=== PATIENT | female | born 1945 | race Caucasian/White ===

== ENCOUNTER → 2017-02-09 | Outpatient (CLI) | payer OTHER ==
[~2017-02-09] MED LIST: ALBUAER3 IN; ASPI-231 PO; CARV3.1213 OR; METF-312 PO; SIMV-13 PO; SPIR25TA89 PO
== END | disposition home or self-care (01) ==
LOC: XYW 07:48
PROVIDERS: ATTEND Internal Medicine
DX: I08.1 Rheumatic disorders of both mitral and tricuspid valves (principal); I49.9 Cardiac arrhythmia, unspecified
CPT/HCPCS: 93306

== ENCOUNTER → 2017-02-10 | Outpatient (CLI) | payer OTHER ==
[2017-02-10 09:30] LABS: Urine Bilirubin Negative (Negative); Urine Blood Negative /uL (Negative); Urine Color Yellow (Yellow); Urine Glucose 1+ mg/dL (Normal); Urine Ketone Negative (Negative); Urine Mucus FEW (None Seen); Urine Nitrite POSITIVE (Negative); Urine RBC 1 /hpf (0 - 4); Urine Squamous Epithelial Cell MOD /hpf (<5); Urine Urobilinogen Normal (Negative); Urine pH 5.5 (5.0-8.0)
[2017-02-10 09:52] LABS: Albumin 3.7 g/dL (3.4-5.0); BUN/Creatinine Ratio 18.7; Bilirubin, Total 0.3 mg/dL (0.2-1.0); Calcium 8.8 mg/dL (8.5-10.1); Potassium 4.1 mmol/L (3.5-5.1); Total Protein 7.2 g/dL (6.4-8.2)
== END | disposition home or self-care (01) ==
LOC: LAB 07:50
PROVIDERS: ATTEND Internal Medicine
DX: I10 Essential (primary) hypertension (principal); I42.9 Cardiomyopathy, unspecified
CPT/HCPCS: 36415; 80053; 80061; 81001; 82043; 82306; 83036; 84443; 86803

== ENCOUNTER → 2018-06-13 | Outpatient (CLI) | payer OTHER ==
[~2018-06-13] MED LIST changes: +CAR3125T OR; -CARV3.1213 OR; -METF-312 PO; +METF-370 PO
[2018-06-13 10:58] LABS: Basophils # (auto) 0 uL; Basophils % (auto) 0.6 % (0.0-2.0); Eosinophils # (auto) 0.4 uL; Eosinophils % (auto) 5.3 % (0.0-7.0); Hematocrit 41.8 % (36.0-46.0); Hemoglobin 14.1 g/dL (12.2-16.2); Lymphocytes # (auto) 2.5 uL; Lymphocytes % (auto) 35.2 % (10.0-50.0); Mean Corpuscular Hgb Conc. 33.8 g/dL (32.0-36.0); Mean Corpuscular Volume 88.9 fL (80.0-100.0); Monocytes # (auto) 0.5 uL; Monocytes % (auto) 7.6 % (0.0-12.0); Neutrophils # (auto) 3.7 uL; Neutrophils % (auto) 51.3 % (37.0-80.0); Nucleated Red Blood Cells % 0.1 %; Platelet Count (auto) 216 10^3/uL (140-450); Red Cell Distribution Width 13.2 % (11.8-14.3); White Blood Cell 7.2 10^3/uL (4.4-10.8)
[2018-06-13 11:02] LABS: Albumin 3.8 g/dL (3.4-5.0); BUN/Creatinine Ratio 12.6; Bilirubin, Total 0.5 mg/dL (0.2-1.0); Calcium 8.9 mg/dL (8.5-10.1); Potassium 3.9 mmol/L (3.5-5.1); Total Protein 7.3 g/dL (6.4-8.2)
== END | disposition home or self-care (01) ==
LOC: LAB 09:25
PROVIDERS: ATTEND Physician Assistant
DX: I11.0 Hypertensive heart disease with heart failure (principal); I50.9 Heart failure, unspecified; E11.9 Type 2 diabetes mellitus without complications; E55.9 Vitamin D deficiency, unspecified; E42 Marasmic kwashiorkor; J44.9 Chronic obstructive pulmonary disease, unspecified
CPT/HCPCS: 36415; 80053; 80061; 82306; 83036; 85025

== ENCOUNTER 2018-06-27 12:17 | Emergency (ER) | payer OTHER ==
[~2018-06-27] VITALS: Ht 160 cm; Wt 83.9 kg
[2018-06-27 12:27] VITALS: BP 144/78
== END 2018-06-27 13:41 | disposition home or self-care (01) ==
LOC: ER 12:17
DX: S06.5X9A Traumatic subdural hemorrhage with loss of consciousness of unspecified duration, initial encounter (principal); I11.0 Hypertensive heart disease with heart failure; I50.9 Heart failure, unspecified; I25.10 Atherosclerotic heart disease of native coronary artery without angina pectoris; J44.9 Chronic obstructive pulmonary disease, unspecified; I25.2 Old myocardial infarction; Z90.49 Acquired absence of other specified parts of digestive tract; Z90.710 Acquired absence of both cervix and uterus; Z88.1 Allergy status to other antibiotic agents; Z88.5 Allergy status to narcotic agent; Z79.82 Long term (current) use of aspirin; Z79.84 Long term (current) use of oral hypoglycemic drugs; Z79.899 Other long term (current) drug therapy; W18.30XA Fall on same level, unspecified, initial encounter; Y93.89 Activity, other specified; Y99.8 Other external cause status; Y92.89 Other specified places as the place of occurrence of the external cause
CPT/HCPCS: 70450

== ENCOUNTER 2019-01-05 09:13 | Day surgery (SDC) | payer OTHER, MEDICARE ==
[2019-01-02 13:06] LABS: Basophils # (auto) 0.1 uL; Basophils % (auto) 0.8 % (0.0-2.0); Eosinophils # (auto) 0.4 uL; Eosinophils % (auto) 5.2 % (0.0-7.0); Hematocrit 42.4 % (36.0-46.0); Hemoglobin 14.4 g/dL (12.2-16.2); Lymphocytes # (auto) 2.9 uL; Lymphocytes % (auto) 35.2 % (10.0-50.0); Mean Corpuscular Hemoglobin 30.2 pg (28.0-32.0); Mean Corpuscular Hgb Conc. 33.9 g/dL (32.0-36.0); Mean Corpuscular Volume 89.3 fL (80.0-100.0); Monocytes # (auto) 0.6 uL; Monocytes % (auto) 7.6 % (0.0-12.0); Neutrophils # (auto) 4.2 uL; Neutrophils % (auto) 51.2 % (37.0-80.0); Nucleated Red Blood Cells % 0.1 %; Platelet Count (auto) 236 10^3/uL (140-450); Red Blood Cells 4.75 10^6/uL (4.0-5.20); Red Cell Distribution Width 13.3 % (11.8-14.3); White Blood Cell 8.2 10^3/uL (4.4-10.8)
[2019-01-02 13:26] LABS: INR 0.87 (0.9-1.15); Prothrombin Time 9.4 sec (9.27-12.13)
[2019-01-02 13:28] LABS: Albumin 3.9 g/dL (3.4-5.0); BUN/Creatinine Ratio 12.2; Calcium 9.6 mg/dL (8.5-10.1); Potassium 4.2 mmol/L (3.5-5.1)
[2019-01-02 13:30] LABS: Bilirubin, Total 0.5 mg/dL (0.2-1.0); Total Protein 7.9 g/dL (6.4-8.2)
[~2019-01-05] VITALS: Ht 160 cm; Wt 83.9 kg
[~2019-01-05 09:13] MED LIST changes: -ALBUAER3 IN; +SPIR25TA8 PO; -SPIR25TA89 PO
[2019-01-05] MEDS ORDERED: ceFAZolin 1GM/50ML 50 ML IV ONE (09:39)
[2019-01-05] MEDS ORDERED: VANCOMYCIN HCL 1000 MG VL ONE (10:20)
[2019-01-05] MEDS ORDERED: fentaNYL CITRATE 100 MCG/2 ML VL ONE (10:20)
[2019-01-05] MEDS ORDERED: MIDAZOLAM HCL 1MG/1ML-2 ML VIAL ONE (10:21)
[2019-01-05] MEDS ORDERED: VANCOMYCIN 1GM/250ML 250 ML IV ONE (10:21)
[2019-01-05] MEDS ORDERED: LIDOCAINE 2%HCL (LOCAL ANESTH.) INJ 20ML MDV ONE ×2 (10:35→11:11)
[2019-01-05] MEDS ORDERED: ceFAZolin 1GM VL ONE (11:22)
== END 2019-01-05 13:10 | disposition home or self-care (01) ==
LOC: CATH 09:13
PROVIDERS: ATTEND Internal Medicine Cardiovascular Disease
DX: Z45.2 Encounter for adjustment and management of vascular access device (principal); I42.0 Dilated cardiomyopathy; J44.9 Chronic obstructive pulmonary disease, unspecified; I21.3 ST elevation (STEMI) myocardial infarction of unspecified site; I11.0 Hypertensive heart disease with heart failure; I50.9 Heart failure, unspecified; E78.5 Hyperlipidemia, unspecified; M19.90 Unspecified osteoarthritis, unspecified site; E11.9 Type 2 diabetes mellitus without complications; Z87.891 Personal history of nicotine dependence; Z79.899 Other long term (current) drug therapy; Z79.01 Long term (current) use of anticoagulants; Z98.890 Other specified postprocedural states; Z88.8 Allergy status to other drugs, medicaments and biological substances
CPT/HCPCS: 33263; 36415; 80053; 85025; 85610; 85730; C1882; J0690; J2250; J3010; J3370; J7030; 99152; 99153

== ENCOUNTER → 2019-02-07 | Outpatient (CLI) | payer MEDICARE ==
[2019-02-07 13:00] LABS: Basophils # (auto) 0.1 uL; Basophils % (auto) 0.8 % (0.0-2.0); Eosinophils # (auto) 0.4 uL; Eosinophils % (auto) 5.8 % (0.0-7.0); Hematocrit 43.6 % (36.0-46.0); Hemoglobin 14.5 g/dL (12.2-16.2); Lymphocytes # (auto) 2.7 uL; Lymphocytes % (auto) 37.6 % (10.0-50.0); Mean Corpuscular Hemoglobin 29.5 pg (28.0-32.0); Mean Corpuscular Hgb Conc. 33.2 g/dL (32.0-36.0); Monocytes # (auto) 0.6 uL; Neutrophils # (auto) 3.5 uL; Neutrophils % (auto) 47.8 % (37.0-80.0); Nucleated Red Blood Cells % 0.1 %; Platelet Count (auto) 220 10^3/uL (140-450); Red Cell Distribution Width 13.2 % (11.8-14.3); White Blood Cell 7.3 10^3/uL (4.4-10.8)
[2019-02-07 13:09] LABS: Urine Bacteria MANY /hpf (None Seen); Urine Blood Negative /uL (Negative); Urine Hyaline Cast FEW /lpf (0 - 2); Urine Mucus FEW (None Seen); Urine Specific Gravity 1.026 (1.001-1.035); Urine WBC 31 /hpf (0 - 5)
[2019-02-07 13:20] LABS: Albumin 3.9 g/dL (3.4-5.0); Calcium 8.6 mg/dL (8.5-10.1); Potassium 3.9 mmol/L (3.5-5.1)
[2019-02-07 13:25] LABS: BUN/Creatinine Ratio 16.8; Bilirubin, Total 0.5 mg/dL (0.2-1.0); Total Protein 7.6 g/dL (6.4-8.2)
== END | disposition home or self-care (01) ==
LOC: LAB 12:06
PROVIDERS: ATTEND Physician Assistant
DX: I13.0 Hypertensive heart and chronic kidney disease with heart failure and stage 1 through stage 4 chronic kidney disease, or unspecified chronic kidney disease (principal); E11.22 Type 2 diabetes mellitus with diabetic chronic kidney disease; I50.20 Unspecified systolic (congestive) heart failure; N18.9 Chronic kidney disease, unspecified; I42.9 Cardiomyopathy, unspecified; E55.9 Vitamin D deficiency, unspecified; Z83.49 Family history of other endocrine, nutritional and metabolic diseases
CPT/HCPCS: 36415; 80053; 80061; 81001; 83036; 84443; 85025

== ENCOUNTER → 2023-06-21 | Outpatient (CLI) | payer OTHER ==
[~2023-06-21] MED LIST changes: -ASPI-231 PO; +ASPI1TAB20 PO; -SIMV-13 PO; +SIMV40TA18 PO
[2023-06-21 10:01] LABS: Cholesterol 192 mg/dL (< 200); HDL Cholesterol 44 mg/dL (40-59); LDL Cholesterol 136 mg/dL (< 100); Triglycerides 78 mg/dL (< 150)
[2023-06-21 10:47] LABS: Folate (Folic Acid) 23.29 ng/mL (5.38-24)
== END | disposition home or self-care (01) ==
LOC: LAB 08:58
PROVIDERS: ATTEND Internal Medicine
DX: E11.22 Type 2 diabetes mellitus with diabetic chronic kidney disease (principal); N18.2 Chronic kidney disease, stage 2 (mild)
CPT/HCPCS: 36415; 80061; 82607; 82746; 84443

== ENCOUNTER → 2023-10-12 | Outpatient (CLI) | payer OTHER ==
[~2023-10-12] MED LIST changes: +ATOR10TA PO; +CAR3125T PO; +LEVO500T31 PO; +PANT40TA2 PO; +SUCR1TAB22 PO
[2023-10-12 09:30] LABS: Triglycerides 92 mg/dL (< 150)
[2023-10-12 09:31] LABS: Cholesterol 165 mg/dL (< 200); LDL Cholesterol 113 mg/dL (< 100)
[2023-10-12 09:32] LABS: HDL Cholesterol 42 mg/dL (40-59)
== END | disposition home or self-care (01) ==
LOC: LAB 08:27
PROVIDERS: ATTEND Internal Medicine
DX: E11.9 Type 2 diabetes mellitus without complications (principal)
CPT/HCPCS: 36415; 80061; 82607

== ENCOUNTER 2024-01-31 16:17 | Emergency (ER) | payer MEDICARE, OTHER, MEDICAID ==
[~2024-01-31] VITALS: Ht 160 cm; Wt 54.8 kg
[~2024-01-31 16:17] MED LIST changes: -CAR3125T OR; -CAR3125T PO; +CARV-214 OR; +CARV-214 PO; -SUCR1TAB22 PO; +SUCR1TAB31 PO
[2024-01-31 16:29] VITALS: BP 144/73; PULSE 70; RESP 16; O2SAT 99
[2024-01-31 17:25] LABS: Basophils # (auto) 0.1 10 ^3/uL (0-0.2); Basophils % (auto) 1.4 % (0.0-2.0); Eosinophils # (auto) 0.1 10 ^3/uL (0-0.8); Eosinophils % (auto) 2.2 % (0.0-7.0); Hematocrit 38.7 % (36.0-46.0); Lymphocytes # (auto) 1.8 10 ^3/uL (0.4-5.4); Lymphocytes % (auto) 30.3 % (10.0-50.0); Mean Corpuscular Hemoglobin 30.3 pg (28.0-32.0); Mean Corpuscular Hgb Conc. 33.6 g/dL (32.0-36.0); Mean Corpuscular Volume 90.3 fL (80.0-100.0); Monocytes # (auto) 0.5 10 ^3/uL (0-1.3); Neutrophils # (auto) 3.5 10 ^3/uL (1.6-8.6); Neutrophils % (auto) 57.1 % (37.0-80.0); Red Blood Cells 4.29 10^6/uL (4.0-5.20); Red Cell Distribution Width 13.4 % (11.8-14.3); White Blood Cell 6.1 10^3/uL (4.4-10.8)
[2024-01-31 17:36] LABS: Chloride 109 mmol/L (98-107); INR 1.03 (0.9-1.15); Potassium 4.2 mmol/L (3.5-5.1); Prothrombin Time 10.8 sec (9.3-11.8); Sodium 140 mmol/L (136-145)
[2024-01-31 17:37] LABS: Anion Gap 3 (5-15); Calcium 9.2 mg/dL (8.5-10.1); Carbon Dioxide 28 mmol/L (20-30)
[2024-01-31 17:42] LABS: BUN/Creatinine Ratio 26.4 (10.0-20.0); Blood Urea Nitrogen 24 mg/dL (9-23); Glucose 111 mg/dL (74-106)
== END 2024-01-31 19:21 | disposition home or self-care (01) ==
LOC: ER 16:17
DX: R79.9 Abnormal finding of blood chemistry, unspecified (principal); I11.0 Hypertensive heart disease with heart failure; I50.9 Heart failure, unspecified; J44.9 Chronic obstructive pulmonary disease, unspecified; E11.9 Type 2 diabetes mellitus without complications; Z98.51 Tubal ligation status; Z90.710 Acquired absence of both cervix and uterus; Z88.6 Allergy status to analgesic agent; Z88.1 Allergy status to other antibiotic agents
CPT/HCPCS: 36415; 80048; 85025; 85379; 85610

== ENCOUNTER 2025-01-27 11:24 | Inpatient (IN) | payer MEDICARE, OTHER, MEDICAID ==
[~2025-01-27] VITALS: Ht 160 cm; Wt 52.2 kg
[2025-01-27 17:08] VITALS: BP 148/78; PULSE 60; RESP 20; TEMP 98; O2SAT 97
[2025-01-27 17:53] VITALS: BP 148/78; PULSE 60; RESP 20; TEMP 98; O2SAT 97
[2025-01-27 20:00] VITALS: PULSE 74
[2025-01-27] MEDS ORDERED: HAL5T IM (20:31)
[2025-01-27] MEDS ORDERED: ONDA4INJ5 IV (20:31)
[2025-01-27] MEDS ORDERED: HYDR-4902 PO (20:31)
[2025-01-27] MEDS ORDERED: CEFT1INJ6 IV (20:31)
[2025-01-27] MEDS ORDERED: HEPA10004 SC (20:31)
[2025-01-27] MEDS ORDERED: ASPI-628 PO (20:31)
--- NOTE | 2025-01-27 20:37 | DVHHP2 ---
History of Present Illness Reason for Visit: transfer for [facility] History of Present Illness 79 year old female past medical history [place] CHF diabetes pacemaker spinal cord injury currently ambulatory chief complaint patient was direct admit from [facility] she is transferred for acute cystitis. Patient arrived to [place] with nausea and vomiting diarrhea. Patient also has some dizziness and confusion when she wake up in the morning. Patient it appears no code stroke was called at that institution because patient was a poor historian. But they do do labs and imaging for the patient's CBC was found to be unremarkable CO2 was 19 BUN was 22 creatinine was 1.04 troponin x2 was positive but Dr. Gonzalez saw patient in clear patient cardiac marm[place]jo urine drug screen was negative UA was positive for infection chest x-ray borderline cardiomegaly CT scan of the head shows no acute intracranial pathology EKG no STEMI but paced rhythm. pt will be admitted, for further workup and care. Past Medical History see hpi above Past Surgical History see hpi above Family History unable to assess d/t mental status Past Social History unable to assess d/t mental status Review of Systems Constitutional: No: Fever, Chills, Sweats, Weakness, Malaise, Other Eyes: No: Pain, Vision change, Conjunctivae inflammation, Eyelid inflammation, Other, Redness ENT: No: Ear pain, Ear discharge, Nose pain, Nose discharge, Nose congestion, Mouth pain, Mouth swelling, Throat pain, Throat swelling, Other Respiratory: No: Cough, Dry, Shortness of breath, SOB with excertion, Wheezing, Hemoptysis, Pleuritic Pain, Sputum, Wheezing, Other Cardiovascular: No: Chest Pain, Palpitations, Orthopnea, Paroxysmal Noc. Dyspnea, Edema, Lt Headedness, Other Gastrointestinal: No: Nausea, Vomiting, Abdominal Pain, Diarrhea, Constipation, Melena, Hematochezia, Other Genitourinary: No Dysuria, No Frequency, No Incontinence, No Hematuria, No Retention, No Other Musculoskeletal: No: other, neck pain, shoulder pain, arm pain, back pain, hand pain, leg pain, foot pain Skin: No: Rash, Lesions, Jaundice, Bruising, Other Neurological: No: Weakness, Numbness, Incoordination, Change in speech, Confusion, Seizures, Other Allergies: Coded Allergies: Dicyclomine (Verified Allergy, Unknown, 01/02/19) Codeine (Verified Adverse Reaction, Mild, headaches, 01/02/19) Exam Vital Signs Vital Signs Date Time Temp Pulse Resp B/P (MAP) Pulse Ox O2 Delivery O2 Flow Rate FiO2 01/27/25 17:53 98.0 60 20 148/78 (101) 97 98.0 01/27/25 17:08 Room Air* 0 21 General Appearance: Alert, Cooperative, No acute distress, Other (confused ) HEENT: Atraumatic, PERRLA, EOMI, Mucous membr. moist/pink Respiratory: Clear to auscultation, Normal air movement Cardiovascular: Regular rate, Normal S1, Normal S2, No murmurs Abdominal: Normal bowel sounds, Soft, No tenderness, No hepatospenomegaly, No masses Extremities: No clubbing, No cyanosis, No edema, Normal pulses, No tenderness/swelling Skin: No rashes, No breakdown, No significant lesion Neuro: Normal speech, Strength at 5/5 X4 ext, Normal tone, Sensation intact, Cranial nerves 3-12 NL Psych/Mental Status: Mental status NL, Mood NL Labs/Xrays reviewed labs on transfer records and ct scan report Assessment/Plan Assessment/Plan acute cystis ordered urine and culture fu results ordered ceftriaxone for now ordered ivf hydration for now acute elevation in trop was seen by Dr. gonzalez was cleared ordered trop and phototypesetting equipment monitor for chest pain chronic problems mi chf monitor for exacerbation while receiving ivf pace maker spinal cord injury able to ambulate fen/ppx diet ivf scd no dvt ppx since pt is ambulatory plan admit to medicine Plan discussed with: Patient Date of Service: Jan 27, 2025 Billing Provider: JENA CHRISTENSEN DNP Common Visit Codes: [id number] INP/OBS CARE (HIGH) JENA CHRISTENSEN DNP Jan 27, 2025 20:37
--- NOTE | 2025-01-27 20:37 | ECG ---
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
[2025-01-27] MEDS ORDERED: NITROGLYCERIN 0.4 MG SL TAB SL PRN (20:45)
[2025-01-27] MEDS ORDERED: HYDROcodone-ACET 5/325MG TAB PO PRN (20:45)
[2025-01-27] MEDS ORDERED: ONDANSETRON HCL 4 MG/2 ML VIAL IV PRN (20:45)
[2025-01-27] MEDS ORDERED: DOCUSATE SOD 100 MG CAP PO PRN (20:45)
[2025-01-27 20:51] VITALS: BP 123/84; PULSE 77; RESP 19; TEMP 98; O2SAT 98
[2025-01-27 21:16] LABS: Basophils # (auto) 0.1 10 ^3/uL (0-0.2); Basophils % (auto) 2.5 % (0.0-2.0); Eosinophils # (auto) 0.1 10 ^3/uL (0-0.8); Eosinophils % (auto) 2.8 % (0.0-7.0); Hematocrit 41.7 % (36.0-46.0); Hemoglobin 13.9 g/dL (12.2-16.2); Lymphocytes # (auto) 1.9 10 ^3/uL (0.4-5.4); Lymphocytes % (auto) 36.8 % (10.0-50.0); Mean Corpuscular Hemoglobin 30.2 pg (28.0-32.0); Mean Corpuscular Hgb Conc. 33.5 g/dL (32.0-36.0); Mean Corpuscular Volume 90.3 fL (80.0-100.0); Monocytes # (auto) 0.6 10 ^3/uL (0-1.3); Monocytes % (auto) 11.3 % (0.0-12.0); Neutrophils # (auto) 2.4 10 ^3/uL (1.6-8.6); Neutrophils % (auto) 46.6 % (37.0-80.0); Nucleated Red Blood Cells % 0.1 %; Platelet Count (auto) 183 10^3/uL (140-450); Red Blood Cells 4.62 10^6/uL (4.0-5.20); Red Cell Distribution Width 12.9 % (11.8-14.3); White Blood Cell 5.2 10^3/uL (4.4-10.8)
[2025-01-27] MEDS: SODIUM CHLORIDE 0.9% 1,000 ML IV SCH (21:36)
[2025-01-27] MEDS: cefTRIAXone 1GM/50ML D5W 50 ML IV ONE (21:37)
[2025-01-27 21:43] LABS: Albumin 4.3 g/dL (3.2-4.8); Alkaline Phosphatase 59 U/L (46-116); Anion Gap 7 (5-15); Aspartate Aminotransferase 15 U/L (13-40); BUN/Creatinine Ratio 21.9 (10.0-20.0); Blood Urea Nitrogen 21 mg/dL (9-23); Calcium 9.4 mg/dL (8.7-10.4); Carbon Dioxide 28 mmol/L (20-31); Potassium 3.8 mmol/L (3.5-5.1); Sodium 142 mmol/L (136-145); Total Protein 6.6 g/dL (5.7-8.2)
[2025-01-27 21:44] LABS: Bilirubin, Total 0.4 mg/dL (0.2-1.0)
[2025-01-27 21:45] LABS: Alanine Aminotransferase < 9 U/L (7-40); Chloride 107 mmol/L (98-107); Glucose 73 mg/dL (74-106)
[2025-01-27] MEDS: InsuLIN REG 1unit/0.01ml Soln (100units/ml) SC SCH (22:00)
[2025-01-27] MEDS ORDERED: DEXTROSE (50%) 50ML SYRG IV PRN (22:00)
[2025-01-27] MEDS: ACCU-CHEK COMFORT CURVE STRIP VI SCH (22:00)
[2025-01-27 23:33] LABS: Urine Bacteria None Seen /hpf (None Seen)
[2025-01-27 23:40] LABS: Urine Blood Negative /uL (Negative); Urine Clarity Clear (Clear); Urine Color Colorless (Yellow); Urine Protein, UAD Negative (Negative); Urine Specific Gravity 1.005 (1.001-1.035); Urine Squamous Epithelial Cell FEW /hpf (<5); Urine Urobilinogen Normal (Negative); Urine WBC 1 /HPF (0-5); Urine pH 5.5 (5.0-9.0)
[2025-01-28 01:00] VITALS: BP 131/70; PULSE 67; RESP 20; TEMP 97.6; O2SAT 97
[2025-01-28 05:02] VITALS: BP 124/78; PULSE 74; RESP 20; TEMP 98.1; O2SAT 95
[2025-01-28 08:33] VITALS: BP 113/54; PULSE 70; RESP 18; TEMP 97.7; O2SAT 97
[2025-01-28 09:55] LABS: Basophils # (auto) 0.1 10 ^3/uL (0-0.2); Basophils % (auto) 1.7 % (0.0-2.0); Eosinophils # (auto) 0.1 10 ^3/uL (0-0.8); Eosinophils % (auto) 3.6 % (0.0-7.0); Hematocrit 40.4 % (36.0-46.0); Hemoglobin 13.5 g/dL (12.2-16.2); Lymphocytes # (auto) 1.3 10 ^3/uL (0.4-5.4); Lymphocytes % (auto) 34.9 % (10.0-50.0); Mean Corpuscular Hemoglobin 30.1 pg (28.0-32.0); Mean Corpuscular Hgb Conc. 33.5 g/dL (32.0-36.0); Monocytes # (auto) 0.4 10 ^3/uL (0-1.3); Monocytes % (auto) 9.7 % (0.0-12.0); Neutrophils # (auto) 1.9 10 ^3/uL (1.6-8.6); Neutrophils % (auto) 50.1 % (37.0-80.0); Nucleated Red Blood Cells % 0.1 %; Platelet Count (auto) 166 10^3/uL (140-450); Red Blood Cells 4.49 10^6/uL (4.0-5.20); Red Cell Distribution Width 12.8 % (11.8-14.3); White Blood Cell 3.8 10^3/uL (4.4-10.8)
[2025-01-28 10:12] LABS: Albumin 3.9 g/dL (3.2-4.8); Alkaline Phosphatase 57 U/L (46-116); Anion Gap 10 (5-15); BUN/Creatinine Ratio 18.4 (10.0-20.0); Bilirubin, Total 0.5 mg/dL (0.2-1.0); Blood Urea Nitrogen 16 mg/dL (9-23); Calcium 9.2 mg/dL (8.7-10.4); Carbon Dioxide 25 mmol/L (20-31); Potassium 3.5 mmol/L (3.5-5.1); Sodium 142 mmol/L (136-145); Total Protein 6.1 g/dL (5.7-8.2)
[2025-01-28 10:15] LABS: Alanine Aminotransferase < 9 U/L (7-40); Aspartate Aminotransferase 13 U/L (13-40); Chloride 107 mmol/L (98-107); Glucose 122 mg/dL (74-106)
[2025-01-28 12:32] VITALS: BP 140/76; PULSE 70; RESP 18; TEMP 98; O2SAT 99
[2025-01-28] MEDS ORDERED: DONE5TAB11 PO (13:39)
--- NOTE | 2025-01-28 15:55 | DVHDS2 ---
Discharge Summary Date of Admission Jan 27, 2025 at 16:55 Date of Discharge: Jan 28, 2025 Admitting Diagnosis Transferred from [facility] for cystitis Labs/Diagnostic Data: Laboratory Results Test 01/28/25 11:05 01/28/25 08:19 01/27/25 23:25 01/27/25 21:02 POC Glucose 90 mg/dl (70-106) White Blood Count 3.8 10^3/uL (4.4-10.8) Red Blood Count 4.49 10^6/uL (4.0-5.20) Hemoglobin 13.5 g/dL (12.2-16.2) Hematocrit 40.4 % (36.0-46.0) Mean Corpuscular Volume 90.0 fL (80.0-100.0) Mean Corpuscular Hemoglobin 30.1 pg (28.0-32.0) Mean Corpuscular Hemoglobin Concent 33.5 g/dL (32.0-36.0) Red Cell Distribution Width 12.8 % (11.8-14.3) Platelet Count 166 10^3/uL (140-450) Mean Platelet Volume 8.4 fL (6.9-10.8) Neutrophils (%) (Auto) 50.1 % (37.0-80.0) Lymphocytes (%) (Auto) 34.9 % (10.0-50.0) Monocytes (%) (Auto) 9.7 % (0.0-12.0) Eosinophils (%) (Auto) 3.6 % (0.0-7.0) Basophils (%) (Auto) 1.7 % (0.0-2.0) Neutrophils # (Auto) 1.9 10 ^3/uL (1.6-8.6) Lymphocytes # (Auto) 1.3 10 ^3/uL (0.4-5.4) Monocytes # (Auto) 0.4 10 ^3/uL (0-1.3) Eosinophils # (Auto) 0.1 10 ^3/uL (0-0.8) Basophils # (Auto) 0.1 10 ^3/uL (0-0.2) Nucleated Red Blood Cells 0.1 % Sodium Level 142 mmol/L (136-145) Potassium Level 3.5 mmol/L (3.5-5.1) Chloride Level 107 mmol/L (98-107) Carbon Dioxide Level 25 mmol/L (20-31) Anion Gap 10 (5-15) Blood Urea Nitrogen 16 mg/dL (9-23) Creatinine 0.87 mg/dL (0.550-1.02) Glomerular Filtration Rate Calc 69 mL/min (>90) BUN/Creatinine Ratio 18.4 (10.0-20.0) Serum Glucose 122 mg/dL (74-106) Calcium Level 9.2 mg/dL (8.7-10.4) Total Bilirubin 0.5 mg/dL (0.2-1.0) Aspartate Amino Transferase (AST) 13 U/L (13-40) Alanine Aminotransferase (ALT) < 9 U/L (7-40) Alkaline Phosphatase 57 U/L (46-116) Total Protein 6.1 g/dL (5.7-8.2) Albumin 3.9 g/dL (3.2-4.8) Urine Color Colorless (Yellow) Urine Clarity Clear (Clear) Urine pH 5.5 (5.0-9.0) Urine Specific [place] 1.005 (1.001-1.035) Urine Protein Negative (Negative) Urine Ketones Negative (Negative) Urine Blood Negative /uL (Negative) Urine Nitrite Negative (Negative) Urine Bilirubin Negative (Negative) Urine Urobilinogen Normal mg/dL (Negative) Urine Leukocyte Esterase Negative /uL (Negative) Urine RBC <1 /hpf (0 - 4) Urine Microscopic WBC 1 /HPF (0-5) Urine Squamous Epithelial Cells Few /hpf (<5) Urine Bacteria None seen /hpf (None Seen) Urine Glucose Normal mg/dL (Normal) Troponin I High Sensitivity 136 ng/L (</=34) Other Laboratory Tests 01/28/25 08:19 Brief Hx & Hospital Course: 79-year-old lady transferred from [facility] because of cystitis. Patient is doing well and she wants to go home. She has no pains. No fever no chills. No nausea no vomit no diarrhea. Her troponin were slightly elevated and she was seen by Cardiology and she was cleared as well. Condition at Discharge: Good Final Diagnosis/Problems List Acute cystitis Dementia History of pacemaker History of CHF/compensated Diabetes Hypertension History of [place] Discharge Disposition: Home Discharge Instruct/Medications Diet: Consistent carbohydrate Activity: Light activity Follow Up/Referral: Follow up with PCP/with me in one week Medications: Cipro 250 mg twice a day for seven days. Resume previous home medications Discharge Statement: "Patient was advised to return to the ER or call 911 if any headaches, dizziness, shortness of breath, chest pain, abdominal pain, bleeding, fevers, or worsening of medical condition. Patient was counseled about treatment plan, medications, possible side effects, patientverbalized understanding. All questions were answered to the best of my ability. This discharge took greater then 30 minutes in planning, reviewing documentation, counseling the patient, and discussing with other team members." ASSESSMENT ASSESSMENT Assessment Date of Service: Jan 28, 2025 Billing Provider: NIKI NO MD Common Visit Codes: [id number] DISCH DAY <30MIN NIKI NO MD Jan 28, 2025 15:55
[2025-01-28] MEDS ORDERED: CIPR250T3 PO (15:56)
[2025-01-28 16:14] VITALS: TEMP 36.7
[2025-01-28] MEDS: SUCRALFATE 1 GM TAB PO SCH (17:00)
[2025-01-28] MEDS ORDERED: cefTRIAXone 1GM/50ML D5W 50 ML IV SCH (21:00)
[2025-01-28] MEDS ORDERED: DONEPEZIL HYDROCHLORIDE 5 MG TAB PO SCH (22:00)
[2025-01-28] MEDS ORDERED: CARVEDILOL 3.125 MG TAB PO SCH (22:00)
[2025-01-28] MEDS ORDERED: ATORVASTATIN 20 MG TAB PO SCH (22:00)
[2025-01-28] MEDS ORDERED: SPIRONOLACTONE 25 MG TAB PO SCH (22:00)
[2025-01-29] MEDS ORDERED: ASPirin-EC 81 mg tab PO SCH (10:00)
== END 2025-01-28 17:00 | disposition home or self-care (01) | DRG 689 ==
LOC: OVERFLOW 16:55 → TELE-WESTW 17:01
DX: N30.00 Acute cystitis without hematuria (principal); G93.41 Metabolic encephalopathy; E11.9 Type 2 diabetes mellitus without complications; I50.9 Heart failure, unspecified; I11.0 Hypertensive heart disease with heart failure; F03.90 Unspecified dementia, unspecified severity, without behavioral disturbance, psychotic disturbance, mood disturbance, and anxiety; Z88.5 Allergy status to narcotic agent; Z88.8 Allergy status to other drugs, medicaments and biological substances; Z79.899 Other long term (current) drug therapy; Z95.0 Presence of cardiac pacemaker; I25.2 Old myocardial infarction; A08.4 Viral intestinal infection, unspecified
CPT/HCPCS: 36415; 80053; 81001; 82962; 84484; 85025; 87086; 93005; G0378

== ENCOUNTER 2025-03-07 14:47 | Inpatient (IN) | payer MEDICARE, OTHER, MEDICAID ==
[~2025-03-07] VITALS: Ht 167.6 cm; Wt 59.0 kg
[~2025-03-07 14:47] MED LIST changes: +ASPI-628 PO; +CEFT1INJ6 IV; +CIPR250T3 PO; +DONE5TAB11 PO; +HAL5T IM; +HEPA10004 SC; +HYDR-4902 PO; +ONDA4INJ5 IV
--- NOTE | 2025-03-07 15:13 | ED.PDOC ---
Back pain HPI HPI Comments 80y F who presents to the ED via EMS for chief complaint of fall injury. - per pt daughter, pt lives by herself and home health nurse was at residence today and noted pt was on the floor found in her own feces and on the floor unable to get up. - EMS was called and noted pt has R hip pain with shortening with noted bruising to the L eye - pt has unknown syncopal episode and pt is unreliable historian due to history of dementia - pt is a0x02 in the ED, but is alert and active - pt otherwise denies any other symptoms at this time PMH: HTN, DM, dementia, PSH: pacemaker, hysterectomy, hip surgery Meds: aricept, lipitor, asa, Allergies: penicillin social history: denies ETOH use, denies tobacco use, denies drug use HPI: Poor Historian. Patient does not recall any fall or injury. She does not know how she ended on the ground. She does not know for how long she was there for. Patient is not a reliable historian. Patient has history of dementia. Later in the course of the patient was admitted, the daughter states that the patient has been having right lower extremity pain few days ago. Possibly that was the reason why she fell. Patient lives alone. REVIEW OF SYSTEMS: CONSTITUTIONAL: Denies acute: fever, diaphoresis, chills, HEAD: Denies acute: headache, photophobia Eyes: Denies acute: Double vision, vision loss, eye pain, eye discharge. EARS: Denies acute: tinnitus, hearing loss, ear discharge, ear pain, THROAT: Denies acute: sore throat, swelling, difficulty swallowing , pain with swallowing, change in voice. NECK: Denies acute: neck pain, neck swelling, stiff neck. HEART: Denies acute : chest pain, palpitations, LUNGS: Denies acute: SOB, wheezing, cough, hemoptysis ABDOMEN: Denies acute: abdominal pain, Nausea, Vomiting, diarrhea, melena , hematemesis, hematochezia SKIN: Denies acute: rash, redness, lesions, itchiness. EXTREMITIES: Denies acute: calf pain, numbness, tingling, weakness, Denies acute: Low back pain. Neuro: Denies acute: focal neurological deficit, motor or sensory focal neurological deficit, tremors, seizure like activity, confusion, dizziness, change in mental status, loss of bowel or bladder function, cauda equina like symptoms. : Denies acute: dysuria, hematuria, flank pain, increase in urinary frequency. PSYCH: Denies acute: hallucination, suicidal ideation, homicidal ideation. FEMALE: Denies acute: abnormal vaginal bleeding, foul odor, unusual discharge. PHYSICAL EXAM: General: ---[id number]-----acute distress, awake and alert. Head: normocephalic, noted minimal left eyebrow contusion. Neck: supple, trachea is midline, no swelling. Throat: Normal phonation. Eyes:, no erythema, no purulent discharge, no proptosis, no icterus. Heart: regular rate, regular rhythm, no significant murmur appreciated. Lungs: no apparent respiratory distress, Able to speak in full sentences. No wheezing, no rhonchi, no crackles. No stridors Clear to auscultation bilaterally. Abdomen: non tender to palpation, non distended, soft, no guarding, no rebound, + bowel sounds. Noted dried feces over all her extremities and abdomen. Neuro: Awake, Alert, oriented to name, self, situation, follows commands GCS=15. Speech is normal. Skin: no petechia, no purpura, no cyanosis, non-pale, not jaundice. Lower extremities: --no - Pitting edema no deformity, no focal swelling, no calf TTP. Patient able to flex left hip and knee. Patient unable to flex right hip and left knee secondary to pain. Palpation of the lateral right hip is tender to palpation. Patient is neurovascularly intact in the affected right lower extremity. Makes eye contact. moves all four extremities. Face: no apparent facial droop. Pedal pulses are palpable. No nuchal rigidity, Kernig's sign, Brudzinski's sign, no meningeal signs. ED COURSE: Chief Complaint: Fall Injury Time Seen by MD: 14:56 Primary Care Provider: NONE Reviewed Notes: Nurses Notes, Allergies Allergies: Coded Allergies: Dicyclomine (Verified Allergy, Unknown, 01/02/19) Penicillins (Verified Allergy, Unknown, 03/07/25) Codeine (Verified Adverse Reaction, Mild, headaches, 01/02/19) Home Meds Active Scripts Ciprofloxacin Hcl (Ciprofloxacin Hcl) 250 Mg Tab, 1 TAB PO BID, #14 TAB Prov:NIKI NO MD 01/28/25 Levofloxacin (Levaquin) 500 Mg Tab, 0.5 TAB PO DAILY for 3 Days, #2 TAB Prov:KARINE MAJANO MD 02/13/22 Sucralfate (CARAFATE) 1 Gm Tab, 1 GM PO QIDACHS for 30 Days, #120 TAB Prov:KARINE MAJANO MD 02/13/22 Pantoprazole Sodium Sesquihydr (Protonix) 40 Mg Tab, 40 MG PO BID for 30 Days, #60 TAB Prov:KARINE MAJANO MD 02/13/22 Atorvastatin Calcium (Lipitor) 10 Mg Tab, 1 TAB PO DAILY for 30 Days, #30 TAB Prov:KARINE MAJANO MD 02/13/22 Reported Medications Donepezil Hydrochloride (Aricept) 5 Mg Tab, 5 MG PO HS, TAB 01/28/25 Aspirin (Aspirin Adult Low Dose) 81 Mg Tab, 81 MG PO DAILY, TAB 01/27/25 Ondansetron HCl (Ondansetron Hydrochloride) 4 Mg/2 Ml Inj, 4 MG IV Q4HPRN PRN for NAUSEA / VOMITING, INJ 01/27/25 Hydrocodone-Acetaminophen (Hydrocodone Bitartrate/AC 5-325 mg) 1 Tab Tab, 1 TAB PO Q4HPRN PRN for MODERATE PAIN (4-6 PAIN SCALE), TAB 01/27/25 Heparin Sodium (Porcine) (Heparin Sodium) 5,000 Unit/0.5 Ml Inj, 5000 UNIT SC BID, INJ 01/27/25 Haloperidol (Haldol) 5 Mg Tb, 1 MG IM BIDPRN PRN for AGITATION, #30 INJ 1 Refill 01/27/25 Ceftriaxone Sodium (Ceftriaxone Sodium) 1 Gm Inj, 1 GM IV DAILY for UTI, INJ 01/27/25 Metformin Hydrochloride (Metformin Hcl) 500 Mg Tab, 1000 MG PO HS for 30 Days, MG 01/01/20 Metformin Hydrochloride (Metformin Hcl) 500 Mg Tab, 500 MG PO QAM for 30 Days, MG 01/01/20 Carvedilol (COREG) 3.125 Mg Tab, 3.125 MG PO BID, TAB 01/01/20 Simvastatin (Simvastatin) 40 Mg Tab, 1 TAB PO HS, #30 TAB 5 Refills 11/22/15 Aspirin (Aspir-81) 81 Mg Tab, 1 TAB PO DAILY, #30 TAB 5 Refills 11/22/15 Spironolactone (Spironolactone) 25 Mg Tab, 1 TAB PO BID, #90 TAB 1 Refill 11/22/15 Carvedilol (COREG) 3.125 Mg Tab, 3.125 MG OR BID, TAB 11/22/15 Metformin Hydrochloride (Metformin Hcl) 500 Mg Tab, 1000 MG PO QPM for 30 Days, MG 11/22/15 Metformin Hydrochloride (Metformin Hcl) 500 Mg Tab, 500 MG PO QAM for 30 Days, MG 11/22/15 Information Source: Relative, Emergency Med Personnel Mode of Arrival: EMS Past Medical History PAST MEDICAL HISTORY: CAD, CHF, COPD, DM, HTN, [place] Surgical History: Appendectomy, BTL, Hysterectomy FLOW SPECIALIST History: No Pertinent FLOW SPECIALIST History Family History Family History: Unknown Social History Smoker: Non-Smoker Alcohol: Denies ETOH Use Drugs: Denies Drug Use Lives In: Home Was a procedure done? Was a procedure done?: No Back Pain Differential Dx Differential Diagnosis: Other Other Differential Diagnosis Trauma, fracture, dislocation, neurovascular injury, bleed, sepsis, CVA, ACS, electrolyte abnormality, Includes but not limited to thyroid disease, encephalopathy, electrolyte abnormality, sepsis, infection, intracranial pathology, drug adverse effects, arrhythmia, kidney insufficiency, ACS, CVA, malignancy, anemia X-Ray, Labs, Meds, VS Vital Signs Date Time Temp Pulse Resp B/P (MAP) Pulse Ox O2 Delivery O2 Flow Rate FiO2 03/07/25 20:00 89 03/07/25 19:56 78 20 97 Room Air* 0 21 03/07/25 19:48 98.9 20 142/61 (88) 97 98.9 03/07/25 19:00 79 22 146/53 (84) 98 03/07/25 18:00 83 17 140/44 (76) 97 03/07/25 17:00 80 22 134/72 (92) 96 03/07/25 16:00 73 03/07/25 16:00 78 16 124/73 (90) 98 03/07/25 15:50 81 17 97 Room Air* 0 21 03/07/25 15:50 98.4 81 17 131/69 (89) 97 98.4 03/07/25 14:56 98.0 78 22 123/74 (90) 98 98.0 Lab Test 03/07/25 18:30 03/07/25 16:48 03/07/25 15:30 03/07/25 15:07 Range/Units Troponin I High Sensitivity 145 *H 168 *H 160 *H </=34 ng/L Thyroid Stimulating Hormone (TSH) Pending White Blood Count 18.5 H 4.4-10.8 10^3/uL Red Blood Count 4.26 4.0-5.20 10^6/uL Hemoglobin 13.0 12.2-16.2 g/dL Hematocrit 37.8 36.0-46.0 % Mean Corpuscular Volume 88.8 80.0-100.0 fL Mean Corpuscular Hemoglobin 30.5 28.0-32.0 pg Mean Corpuscular Hemoglobin Concent 34.3 32.0-36.0 g/dL Red Cell Distribution Width 13.5 11.8-14.3 % Platelet Count 198 140-450 10^3/uL Mean Platelet Volume 8.4 6.9-10.8 fL Neutrophils (%) (Auto) 85.9 H 37.0-80.0 % Lymphocytes (%) (Auto) 5.1 L 10.0-50.0 % Monocytes (%) (Auto) 8.8 0.0-12.0 % Eosinophils (%) (Auto) 0.0 0.0-7.0 % Basophils (%) (Auto) 0.2 0.0-2.0 % Neutrophils # (Auto) 15.9 H 1.6-8.6 10 ^3/uL Lymphocytes # (Auto) 0.9 0.4-5.4 10 ^3/uL Monocytes # (Auto) 1.6 H 0-1.3 10 ^3/uL Eosinophils # (Auto) 0 0-0.8 10 ^3/uL Basophils # (Auto) 0 0-0.2 10 ^3/uL Nucleated Red Blood Cells 0.0 % Sodium Level 146 H 136-145 mmol/L Potassium Level 3.5 3.5-5.1 mmol/L Chloride Level 111 H 98-107 mmol/L Carbon Dioxide Level 24 20-31 mmol/L Anion Gap 11 5-15 Blood Urea Nitrogen 34 H 9-23 mg/dL Creatinine 0.80 0.550-1.02 mg/dL Glomerular Filtration Rate Calc 75 >90 mL/min BUN/Creatinine Ratio 42.5 H 10.0-20.0 Serum Glucose 150 H 74-106 mg/dL Hemoglobin A1c Pending Lactic Acid Level 1.9 0.4-2.0 mmol/L Calcium Level 9.7 8.7-10.4 mg/dL Magnesium Level 2.3 1.6-2.6 mg/dL Total Bilirubin 1.1 H 0.2-1.0 mg/dL Aspartate Amino Transferase (AST) 39 13-40 U/L Alanine Aminotransferase (ALT) 24 7-40 U/L Alkaline Phosphatase 69 46-116 U/L Creatine Kinase 771 H 34-145 U/L B-Type Natriuretic Peptide Pending Total Protein 6.4 5.7-8.2 g/dL Albumin 4.2 3.2-4.8 g/dL Vitamin B12 Level Pending Vitamin D 25-Hydroxy Pending Folic Acid Pending Urine Color Yellow Yellow Urine Clarity Turbid H Clear Urine pH 5.5 5.0-9.0 Urine Specific [place] 1.026 1.001-1.035 Urine Protein Trace H Negative Urine Ketones 1+ H Negative Urine Blood Negative Negative /uL Urine Nitrite Negative Negative Urine Bilirubin Negative Negative Urine Urobilinogen Normal Negative mg/dL Urine Leukocyte Esterase Negative Negative /uL Urine RBC 1 0 - 4 /hpf Urine Microscopic WBC 2 0-5 /HPF Urine Squamous Epithelial Cells Few <5 /hpf Urine Bacteria Few H None Seen /hpf Urine Mucus Few None Seen Urine Glucose Normal Normal mg/dL Current Medications Medications (Trade) Dose Ordered Sig/Gavin Route Start Time Stop Time Status Last Admin Sodium Chloride 1,000 ml @ 1,000 mls/hr Q1H ONCE IV 03/07/25 15:15 03/07/25 16:14 DC 03/07/25 17:01 Sodium Chloride 1,000 ml @ 1,000 mls/hr Q1H ONCE IV 03/07/25 16:00 03/07/25 16:59 DC 03/07/25 18:10 Metronidazole 100 ml @ 100 mls/hr ONCE ONCE IV 03/07/25 17:15 03/07/25 18:14 DC 03/07/25 17:47 Aspirin (Ecotrin Enteric Coated Tablet) 325 mg ONCE ONCE PO 03/07/25 17:15 03/07/25 17:16 DC 03/07/25 17:[address] [address] Ph: [phone] DIAGNOSTIC IMAGING Diagnostic Imaging Report : [id number] Signed PATIENT: GLORIA DAVID ACCT: [id number] UNIT: [id number] : 1945 LOC: ER ROOM / BED: / AGE / SEX: 80 / F ADM STATUS: REG ER SERVICE 1500 ORDERING PHYSICIAN: MELIZA HUI DO PROCEDURE(s): CXRP - CHEST PORTABLE REASON: fall, weak ORDER NUMBER(s): [id number], ACCESSION NUMBER(s): [id number] CHEST RADIOGRAPH Indication: fall, weak Technique: Single frontal view of the chest was obtained Comparison: None FINDINGS: The cardiac silhouette is unremarkable. Aortic atherosclerotic disease. Left chest cardiac defibrillator device. The lungs demonstrate patchy airspace opacities. The pulmonary vasculature is prominent. There is no pleural effusion.. There is no pneumothorax. IMPRESSION: 1. As above ATED BY: LOUIE MONAE MD DICTATED DATE/TIME: 03/07/251709 SIGNED BY: LOUIE MONAE MD SIGNED DATE/TIME: 03/07/251709 CC: [address] [id number] Ph: [phone] DIAGNOSTIC IMAGING Diagnostic Imaging Report : [id number] Signed PATIENT: GLORIA DAVID ACCT: [id number] UNIT: [id number] : 1945 LOC: ER ROOM / BED: / AGE / SEX: 80 / F ADM STATUS: REG ER SERVICE 06 ORDERING PHYSICIAN: MELIZA HUI DO PROCEDURE(s): CTCAP - CHST AB PEL WO CON-NO IV/ORAL REASON: fall ORDER NUMBER(s): [id number], ACCESSION NUMBER(s): [id number] CT CHEST, ABDOMEN AND PELVIS WITHOUT CONTRAST HISTORY: fall COMPARISON: None TECHNIQUE: Helical axial CT images of the chest, abdomen and pelvis were obtained without intravenous contrast. Multiplanar reformats. One or more of the following radiation dose reduction techniques were used for this examination: automated exposure control, adjustment of the mA and/or kV according to patient size, use of iterative reconstruction technique. FINDINGS: Evaluation of visceral and vascular structures is limited due to lack of contrast administration. CHEST: Mediastinum: Mediastinal tracheobronchial structures and other great vessels appear within normal limits. There is atherosclerotic change of the great vessels with calcified plaque. No lymphadenopathy is noted. No pericardial effusion or thickening is identified. Heart: The heart appears to be normal. The pericardium appears to be normal. There is a left-sided AICD with lead in right ventricle. There is coronary calcification suggestive. Pleural cavity: No pleural effusion or thickening is noted. Lungs: Visualized bilateral lungs demonstrate no definite nodules or infiltrate. Chest wall and axillae: No axillary lymphadenopathy is noted. ABDOMEN AND PELVIS: Liver: Negative. Gallbladder and biliary system: There are multiple small calculi seen in the dependent portion of the gallbladder lumen. No abnormal biliary ductal dilatation is noted. Pancreas: Negative. Spleen: Negative. Adrenal Glands: Negative. Kidneys and collecting system: No hydronephrosis or nephrolithiasis. Bowel: No evidence of bowel obstruction. There is occasional colonic diverticulosis. Visualized appendix is within normal limits. Lymph nodes: Negative. Retroperitoneum: No evidence of aortic aneurysm. Pelvis: No urinary bladder stone. Osseous structures: No destructive lesions. There is mild rotoscoliosis of the thoracic lumbar spine. There is left hip arthroplasty which appears to be an anatomical variation. IMPRESSION: 1. No acute findings. 2. Cholelithiasis 3. Left hip arthroplasty which appears to be anatomic 4. Colonic diverticulosis ATED BY: GONZALO MUÑIZ MD DICTATED DATE/TIME: 03/07/251650 SIGNED BY: GONZALO MUÑIZ MD SIGNED DATE/TIME: 03/07/251650 CC: [address] [id number] Ph: [phone] DIAGNOSTIC IMAGING Diagnostic Imaging Report : [id number] Signed PATIENT: GLORIA DAVID ACCT: [id number] UNIT: [id number] : 1945 LOC: ER ROOM / BED: / AGE / SEX: 80 / F ADM STATUS: REG ER SERVICE [id number] ORDERING PHYSICIAN: MELIZA HUI DO PROCEDURE(s): HWOCT - HEAD WITHOUT CONTRAST REASON: fall ORDER NUMBER(s): [id number], ACCESSION NUMBER(s): [id number] CT HEAD WITHOUT CONTRAST INDICATION: fall : 80 old Female fall EXAM DATE: 03/07/2025 04:09 PM COMPARISON: None RADIATION DOSE: CTDIvol: 53.65 mGy, DLP: 1057.35 mGy*cm PROCEDURE: CT scans of the head were obtained from the vertex to the skull base. Sagittal and coronal reconstructions were provided. All CT scans at this medical facility are performed using dose modulation techniques as appropriate to a performed exam including the following: Automated exposure control was utilized; adjustment of the MA and/or KV according to patient size; and use of iterative reconstruction technique. FINDINGS: Global atrophy with periventricular ischemic white matter changes. There is sulcal and ventricular prominence. The brain shows normal morphology and roland-white matter differentiation, without intracranial hemorrhage, extra- axial fluid collection, mass effect or acute large vessel infarct. The ventricles are prominent in size. The basal cisterns are patent. The bilateral hyperostosis interna. The skull and visible facial bones are intact. The paranasal sinuses, mastoid air cells and middle ear cavities are well-aerated. The soft tissues of the scalp are unremarkable. IMPRESSION: 1. No acute intracranial abnormality. ATED BY: GONZALO MUÑIZ MD DICTATED DATE/TIME: 03/07/25 1637 SIGNED BY: GONZALO MUÑIZ MD SIGNED DATE/TIME: 03/07/25 163 CC: [place] [address] Ph: [phone] DIAGNOSTIC IMAGING Diagnostic Imaging Report : [id number] Signed PATIENT: GLORIA DAVID ACCT: [id number] UNIT: [id number] : 1945 LOC: ER ROOM / BED: / AGE / SEX: 80 / F ADM STATUS: REG ER SERVICE [id number] ORDERING PHYSICIAN: MELIZA HUI DO PROCEDURE(s): CS2 - CERVICAL WITHOUT CONTRAST REASON: FALL ORDER NUMBER(s): [id number], ACCESSION NUMBER(s): [id number] CT OF THE CERVICAL SPINE WITHOUT CONTRAST HISTORY: FALL COMPARISON: None TECHNIQUE: Helical images through the cervical spine were obtained without contrast. Sagittal and coronal reformats were obtained. One or more of the following radiation dose reduction techniques were used for this examination: automated exposure control, adjustment of the mA and/or kV according to patient size, use of iterative reconstruction technique. FINDINGS: There is no acute cervical spine fracture. No anterolisthesis or retrolisthesis. Vertebral body heights are maintained. there is mild disc disease seen at C6-7. No prevertebral soft tissue swelling. Spinous processes are intact. No jumped or perched facets. Craniocervical junction is normal. Evaluation of the soft tissues of the neck and lung apices are unremarkable. There is fibrosis seen in the right apices. IMPRESSION: 1. No acute cervical spine fracture. 2. Disc disease with loss of disc height at C6-C7. 3. Right apical fibrosis ATED BY: GONZALO MUÑIZ MD DICTATED DATE/TIME: 03/07/25 1640 SIGNED BY: GONZALO MUÑIZ MD SIGNED DATE/TIME: 03/07/25 1640 CC: Time of 1ST Reevaluation: 17:06 Reevaluation 1ST: Unchanged Patient Education/Counseling: Other Family Education/Counseling: Diagnosis, Treatment Comments Patient presented with the above HPI.--fall----workup was initiated. patient was found with the above mentioned diagnosis. the following medications were ordered: please refer to order lists of meds and tests obtained by myself Dr. Hui. Patient ED course and VS have been stabilized. Patient has been reassessed in the ED and remained in a stable condition. Pertinent incidental findings were discussed with the patient and/or family. Patient/family voices understanding and is agreeable with plan. Patient has been observed in the ED adequate length of time to insure improvement/stability. Escalation of care considered: Consideration of escalation to observation or admission Patient was silveira scan. Empiric antibiotics Flagyl was ordered given the patient presence of soiled clothing with feces. Patient was extremely poor historian. Patient was given fluid hydration. Patient was found with elevated troponin. She was given aspirin. Patient was ADMITTED to the medicine team for further evaluation and treatment of their presentation. All the reports of any imaging studies that were ordered by myself were reviewed by myself. Departure 1 Departure Time of Disposition: 17:04 Impression: Primary Impression: Right hip pain Additional Impressions: Fall Closed head injury Rhabdomyolysis Altered mental status Syncope and collapse Leukocytosis Elevated troponin Disposition: ADMITTED INPATIENT Admit to: Tele Condition: Guarded Discharged With: Self Critical Care Note Critical Care Time?: Yes (55 min-critical care time only) I personally scribed for MELIZA HUI DO ([email or web address]) on 03/07/25 at 15:13. Electronically submitted by Mikayla Raza (J [email or web address]). I personally scribed for MELIZA HUI DO ([email or web address]) on 03/07/25 at 17:21. Electronically submitted by Mikayla Raza (J [email or web address]). I personally scribed for MELIZA HUI DO ([email or web address]) on 03/07/25 at 20:42. Electronically submitted by Mikayla Raza (J LUIS). MELIZA HUI DO March 07, 2025 15:13
[2025-03-07 15:45] LABS: Basophils # (auto) 0 10 ^3/uL (0-0.2); Basophils % (auto) 0.2 % (0.0-2.0); Eosinophils # (auto) 0 10 ^3/uL (0-0.8); Hematocrit 37.8 % (36.0-46.0); Lymphocytes # (auto) 0.9 10 ^3/uL (0.4-5.4); Lymphocytes % (auto) 5.1 % (10.0-50.0); Mean Corpuscular Hemoglobin 30.5 pg (28.0-32.0); Mean Corpuscular Hgb Conc. 34.3 g/dL (32.0-36.0); Mean Corpuscular Volume 88.8 fL (80.0-100.0); Monocytes # (auto) 1.6 10 ^3/uL (0-1.3); Monocytes % (auto) 8.8 % (0.0-12.0); Neutrophils # (auto) 15.9 10 ^3/uL (1.6-8.6); Neutrophils % (auto) 85.9 % (37.0-80.0); Platelet Count (auto) 198 10^3/uL (140-450); Red Blood Cells 4.26 10^6/uL (4.0-5.20); Red Cell Distribution Width 13.5 % (11.8-14.3); White Blood Cell 18.5 10^3/uL (4.4-10.8)
[2025-03-07 15:50] VITALS: PULSE 81; RESP 17; O2SAT 97
[2025-03-07 15:59] LABS: Alanine Aminotransferase 24 U/L (7-40); Albumin 4.2 g/dL (3.2-4.8); Alkaline Phosphatase 69 U/L (46-116); Anion Gap 11 (5-15); Aspartate Aminotransferase 39 U/L (13-40); BUN/Creatinine Ratio 42.5 (10.0-20.0); Calcium 9.7 mg/dL (8.7-10.4); Carbon Dioxide 24 mmol/L (20-31); Magnesium 2.3 mg/dL (1.6-2.6); Potassium 3.5 mmol/L (3.5-5.1); Total Protein 6.4 g/dL (5.7-8.2)
[2025-03-07 16:00] LABS: Bilirubin, Total 1.1 mg/dL (0.2-1.0)
[2025-03-07 16:05] LABS: Blood Urea Nitrogen 34 mg/dL (9-23); Chloride 111 mmol/L (98-107); Creatine Kinase IFCC 771 U/L (34-145); Glucose 150 mg/dL (74-106); Sodium 146 mmol/L (136-145)
--- NOTE | 2025-03-07 16:40 | DVH ---
CT HEAD WITHOUT CONTRAST INDICATION: fall : 80 old Female fall EXAM DATE: 03/07/2025 04:09 PM COMPARISON: None RADIATION DOSE: CTDIvol: 53.65 mGy, DLP: 1057.35 mGy*cm PROCEDURE: CT scans of the head were obtained from the vertex to the skull base. Sagittal and coronal reconstructions were provided. All CT scans at this medical facility are performed using dose modulation techniques as appropriate t o a performed exam including the following: Automated exposure control was utilized; adjustment of th e MA and/or KV according to patient size; and use of iterative reconstruction technique. FINDINGS: Global atrophy with periventricular ischemic white matter changes. There is sulcal and christiano tricular prominence. The brain shows normal morphology and roland-white matter differentiation, without intracranial hemorrhage, extra-axial fluid collection, mass effect or acute large vessel infarct. Th e ventricles are prominent in size. The basal cisterns are patent. The bilateral hyperostosis interna . The skull and visible facial bones are intact. The paranasal sinuses, mastoid air cells and middle ear cavities are well-aerated. The soft tissues of the scalp are unremarkable. IMPRESSION: 1. No acute intracranial abnormality.
--- NOTE | 2025-03-07 16:42 | DVH ---
CT OF THE CERVICAL SPINE WITHOUT CONTRAST HISTORY: FALL COMPARISON: None TECHNIQUE: Helical images through the cervical spine were obtained without contrast. Sagittal and cor onal reformats were obtained. One or more of the following radiation dose reduction techniques were u sed for this examination: automated exposure control, adjustment of the mA and/or kV according to pat ient size, use of iterative reconstruction technique. FINDINGS: There is no acute cervical spine fracture. No anterolisthesis or retrolisthesis. Vertebral body heights are maintained. there is mild disc disease seen at C6-7. No prevertebral soft tissue swelling. Spinous processes are intact. No jumped or perched facets. Lead Data Architect niocervical junction is normal. Evaluation of the soft tissues of the neck and lung apices are unremarkable. There is fibrosis seen i n the right apices. IMPRESSION: 1. No acute cervical spine fracture. 2. Disc disease with loss of disc height at C6-C7. 3. Right apical fibrosis
--- NOTE | 2025-03-07 16:53 | DVH ---
CT CHEST, ABDOMEN AND PELVIS WITHOUT CONTRAST HISTORY: fall COMPARISON: None TECHNIQUE: Helical axial CT images of the chest, abdomen and pelvis were obtained without intravenous contrast. Multiplanar reformats. One or more of the following radiation dose reduction techniques we re used for this examination: automated exposure control, adjustment of the mA and/or kV according to patient size, use of iterative reconstruction technique. FINDINGS: Evaluation of visceral and vascular structures is limited due to lack of contrast administration. CHEST: Mediastinum: Mediastinal tracheobronchial structures and other great vessels appear within normal smith its. There is atherosclerotic change of the great vessels with calcified plaque. No lymphadenopathy i s noted. No pericardial effusion or thickening is identified. Heart: The heart appears to be normal. The pericardium appears to be normal. There is a left-sided A ICD with lead in right ventricle. There is coronary calcification suggestive. Pleural cavity: No pleural effusion or thickening is noted. Lungs: Visualized bilateral lungs demonstrate no definite nodules or infiltrate. Chest wall and axillae: No axillary lymphadenopathy is noted. ABDOMEN AND PELVIS: Liver: Negative. Gallbladder and biliary system: There are multiple small calculi seen in the dependent portion of the gallbladder lumen. No abnormal biliary ductal dilatation is noted. Pancreas: Negative. Spleen: Negative. Adrenal Glands: Negative. Kidneys and collecting system: No hydronephrosis or nephrolithiasis. Bowel: No evidence of bowel obstruction. There is occasional colonic diverticulosis. Visualized jayleen endix is within normal limits. Lymph nodes: Negative. Retroperitoneum: No evidence of aortic aneurysm. Pelvis: No urinary bladder stone. Osseous structures: No destructive lesions. There is mild rotoscoliosis of the thoracic lumbar spine. There is left hip arthroplasty which appears to be an anatomical variation. IMPRESSION: 1. No acute findings. 2. Cholelithiasis 3. Left hip arthroplasty which appears to be anatomic 4. Colonic diverticulosis
[2025-03-07] MEDS: SODIUM CHLORIDE 0.9% 1,000 ML IV ONE ×2 (17:01)
--- NOTE | 2025-03-07 17:12 | DVH ---
CHEST RADIOGRAPH Indication: fall, weak Technique: Single frontal view of the chest was obtained Comparison: None FINDINGS: The cardiac silhouette is unremarkable. Aortic atherosclerotic disease. Left chest cardiac defibrill ator device. The lungs demonstrate patchy airspace opacities. The pulmonary vasculature is prominent. There is no pleural effusion.. There is no pneumothorax. IMPRESSION: 1. As above
[2025-03-07 17:19] LABS: Urine Bacteria FEW /hpf (None Seen); Urine Blood Negative /uL (Negative); Urine Clarity Turbid (Clear); Urine Color Yellow (Yellow); Urine Mucus FEW (None Seen); Urine Protein, UAD TRACE (Negative); Urine Specific Gravity 1.026 (1.001-1.035); Urine Squamous Epithelial Cell FEW /hpf (<5); Urine Urobilinogen Normal (Negative); Urine WBC 2 /HPF (0-5); Urine pH 5.5 (5.0-9.0)
[2025-03-07] MEDS: metroNIDAZOLE 500MG/100ML 100 ML IV ONE (17:47)
[2025-03-07] MEDS: ASPirin-EC 325mg tab PO ONE (17:47)
[2025-03-07 19:56] VITALS: PULSE 78; RESP 20; O2SAT 97
[2025-03-07] MEDS ORDERED: MORPHINE SULFATE INJ 2 MG/ml SYRG IV PRN (20:15)
[2025-03-07] MEDS: PANTOPRAZOLE 40 MG/10 ML VIAL INJ IV ONE (20:15)
[2025-03-07] MEDS ORDERED: NITROGLYCERIN 0.4 MG SL TAB SL PRN (20:15)
[2025-03-07] MEDS ORDERED: ONDANSETRON HCL 4 MG/2 ML VIAL IV PRN (20:15)
[2025-03-07] MEDS: ENOXAPARIN SOD 40 MG/0.4 ML SYRINGE SC ONE (21:15)
[2025-03-07] MEDS ORDERED: hydrALAZINE HCL 20 MG/ML VL IV PRN (21:15)
--- NOTE | 2025-03-07 21:25 | DVHHP2 ---
History of Present Illness History of Present Illness Patient is 80 years old female with a past medical history of severe dementia, HFrEF, history of dilated cardiomyopathy on AICD biventricular, COPD, hypertension, diabetes mellitus type 2 was brought in by EMS as patient was found on the floor with feces and urine likely after fall. Information was gathered mainly from patient's daughter Ms. Felix [phone] and reviewing chart from EMS. As per daughter family friend came to check on her this morning and found her on the floor lying on the feces and urine. Patient reported she fell last night but can not recall detailed. As per family patient also had a fall 1 month back. Daughter reported that she talked to her last night and denied any complaint of chest pain no shortness a breath or fever or dysuria. Initial lab workup revealed leukocytosis with WBC 18.5, sodium 146, BUN 34, serum creatinine 0.80, GFR 75, lactic acid 1.9, CK 771, troponin I 160>> 168 >145, urinalysis ketone. CT cervical spine-No acute cervical spine fracture. Disc disease with loss of disc height at C6-C7. Right apical fibrosis. CT head no acute intracranial abnormality, global atrophy with the periventricular ischemic white matter changes. CT abdomen pelvis revealed cholelithiasis, left hip arthroplasty which appears to be anatomic, colonic diverticulosis. CXR-Aortic atherosclerotic disease. Left chest cardiac defibrillator device. The lungs demonstrate patchy airspace opacities. The pulmonary vasculature is prominent. X-ray pelvis- Comminuted impacted right intertrochanteric fracture. X-ray right hip - There is a comminuted and displaced right intertrochanteric fracture. On physical exam patient has a right lower extremity showed and everted, right hip tender on palpation, ordered x-ray hip and pelvis for further evaluation and care. ECHO-06/16/2022- LVEF 45%, paradoxical septal wall motion, pacemaker lead seen As per daughter recent echo revealed LVEF 10%, no documents noted Recently discharged from [facility] on 01/28/25 treated for cystitis. Clothing Cutter PCP Dr. Puente Emergency contact Hazel- [phone]- daughter asked to call this person in this number Past Medical History severe dementia, HFrEF, history of dilated cardiomyopathy on AICD biventricul ar, COPD, hypertension, diabetes mellitus type 2 Past Surgical History Appendectomy, hysterectomy, left hip replacement surgery Past Social History Patient lives alone, family appearance comes check on her often as per daughter, denies alcoholism/smoking/drug abuse as per daughter Review of Systems Review of Systems Details of the other system could not be found as patient is confused likely from dementia or encephalopathy Allergies: Coded Allergies: Dicyclomine (Verified Allergy, Unknown, 01/02/19) Penicillins (Verified Allergy, Unknown, 03/07/25) Codeine (Verified Adverse Reaction, Mild, headaches, 01/02/19) Medications Current Medications Medications Dose Ordered Sig/Gavin Route Start Time Stop Time Status Last Admin Dose Admin Sodium Chloride 10 ml Q8HR IV 03/07/25 22:00 Acetaminophen 325 mg Q4HP PRN PO 03/07/25 20:15 Ondansetron HCl 4 mg Q4HP PRN IV 03/07/25 20:15 Nitroglycerin 0.4 mg Q5MINP PRN SL 03/07/25 20:15 Morphine Sulfate 2 mg Q30M PRN IV 03/07/25 20:15 Pantoprazole Sodium 40 mg DAILY IV 03/08/25 10:00 Exam Vital Signs Vital Signs Date Time Temp Pulse Resp B/P (MAP) Pulse Ox O2 Delivery O2 Flow Rate FiO2 03/07/25 20:00 89 03/07/25 19:56 20 97 Room Air* 0 21 03/07/25 19:48 98.9 142/61 (88) 98.9 Exam General examination- patient with confusion, poor memory, loose on the left upper eyelid-black eye HEENT- PEERLA-bruise on the left upper eyelid Cardiovascular- S1-S2 audible, rate and rhythm regular, no murmur Respiratory- CTAB, no wheeze or rhonchi Gastrointestinal-nontender, bowel sound+. Nondistended Musculoskeletal-right hip tenderness++, right lower extremity short and everted Lower extremity- right lower extremity short and everted Neurological- patient with confusion Psychiatry- AAOX1 Skin- bruise on the left upper eyelid Labs/Xrays Labs Test 03/07/25 18:30 03/07/25 15:30 03/07/25 15:07 Range/Units Troponin I High Sensitivity 145 *H </=34 ng/L White Blood Count 18.5 H 4.4-10.8 10^3/uL Red Blood Count 4.26 4.0-5.20 10^6/uL Hemoglobin 13.0 12.2-16.2 g/dL Hematocrit 37.8 36.0-46.0 % Mean Corpuscular Volume 88.8 80.0-100.0 fL Mean Corpuscular Hemoglobin 30.5 28.0-32.0 pg Mean Corpuscular Hemoglobin Concent 34.3 32.0-36.0 g/dL Red Cell Distribution Width 13.5 11.8-14.3 % Platelet Count 198 140-450 10^3/uL Mean Platelet Volume 8.4 6.9-10.8 fL Neutrophils (%) (Auto) 85.9 H 37.0-80.0 % Lymphocytes (%) (Auto) 5.1 L 10.0-50.0 % Monocytes (%) (Auto) 8.8 0.0-12.0 % Eosinophils (%) (Auto) 0.0 0.0-7.0 % Basophils (%) (Auto) 0.2 0.0-2.0 % Neutrophils # (Auto) 15.9 H 1.6-8.6 10 ^3/uL Lymphocytes # (Auto) 0.9 0.4-5.4 10 ^3/uL Monocytes # (Auto) 1.6 H 0-1.3 10 ^3/uL Eosinophils # (Auto) 0 0-0.8 10 ^3/uL Basophils # (Auto) 0 0-0.2 10 ^3/uL Nucleated Red Blood Cells 0.0 % Sodium Level 146 H 136-145 mmol/L Potassium Level 3.5 3.5-5.1 mmol/L Chloride Level 111 H 98-107 mmol/L Carbon Dioxide Level 24 20-31 mmol/L Anion Gap 11 5-15 Blood Urea Nitrogen 34 H 9-23 mg/dL Creatinine 0.80 0.550-1.02 mg/dL Glomerular Filtration Rate Calc 75 >90 mL/min BUN/Creatinine Ratio 42.5 H 10.0-20.0 Serum Glucose 150 H 74-106 mg/dL Lactic Acid Level 1.9 0.4-2.0 mmol/L Calcium Level 9.7 8.7-10.4 mg/dL Magnesium Level 2.3 1.6-2.6 mg/dL Total Bilirubin 1.1 H 0.2-1.0 mg/dL Aspartate Amino Transferase (AST) 39 13-40 U/L Alanine Aminotransferase (ALT) 24 7-40 U/L Alkaline Phosphatase 69 46-116 U/L Creatine Kinase 771 H 34-145 U/L Total Protein 6.4 5.7-8.2 g/dL Albumin 4.2 3.2-4.8 g/dL Urine Color Yellow Yellow Urine Clarity Turbid H Clear Urine pH 5.5 5.0-9.0 Urine Specific [place] 1.026 1.001-1.035 Urine Protein Trace H Negative Urine Ketones 1+ H Negative Urine Blood Negative Negative /uL Urine Nitrite Negative Negative Urine Bilirubin Negative Negative Urine Urobilinogen Normal Negative mg/dL Urine Leukocyte Esterase Negative Negative /uL Urine RBC 1 0 - 4 /hpf Urine Microscopic WBC 2 0-5 /HPF Urine Squamous Epithelial Cells Few <5 /hpf Urine Bacteria Few H None Seen /hpf Urine Mucus Few None Seen Urine Glucose Normal Normal mg/dL Assessment/Plan Assessment/Plan Assessment and plan Status post right femur neck [id number] pelvis- Comminuted impacted right intertrochanteric fracture. X-ray right hip - There is a comminuted and displaced right intertrochanteric fracture. Fall, likely mechanical rule out right hip fracture/stroke/syncope/cardiac arrhythmia Metabolic encephalopathy likely due to ?UTI Suspected syncope Black eye on the left likely from fall Severe right hip pain, rule out acute fracture NSTEMI likely type 2 demand lead Acute rhabdomyolysis Hyponatremia likely from dehydration SIRS Leukocytosis, likely due to suspected UTI severe dementia, HFrEF, history of dilated cardiomyopathy on AICD biventricular, COPD, hypertension, diabetes mellitus type 2 Initial lab workup revealed leukocytosis with WBC 18.5, sodium 146, BUN 34, serum creatinine 0.80, GFR 75, lactic acid 1.9, CK 771, troponin I 160>> 168 >145, urinalysis ketone. CT cervical spine-No acute cervical spine fracture. Disc disease with loss of disc height at C6-C7. Right apical fibrosis. CT head no acute intracranial abnormality, global atrophy with the periventricular ischemic white matter changes. CT abdomen pelvis revealed cholelithiasis, left hip arthroplasty which appears to be anatomic, colonic diverticulosis. CXR-Aortic atherosclerotic disease. Left chest cardiac defibrillator device. The lungs demonstrate patchy airspace opacities. The pulmonary vasculature is prominent. X-ray pelvis- Comminuted impacted right intertrochanteric fracture. X-ray right hip - There is a comminuted and displaced right intertrochanteric fracture. Plan Ordered x-ray hip to rule out [id number] pelvis- Comminuted impacted right intertrochanteric fracture. Aspirin Aricept Atorvastatin Lovenox DVT prophylaxis Pantoprazole as prescribed Continue with the pain medications Ordered orthopedic consult for further evaluation and care-Rubina Alvarado has been informed Typing and cross matching Clothing Cutter PCP Dr. Puente Goals of care, Code status ; discussed with >15 minutes PUD prophylaxis: Pantoprazole DVT prophylaxis: heparin Plan discussed with Dr. Medina , nursing staff, daughter Total time spent on patient evaluation, chart review, assessment and plan, discussion discussion >35 minutes Plan discussed with: Patient, Daughter, Other (RN) My Orders Orders - BLAIR [facility] RESIDENT Procedure Category Date Status Time Admit ADMIT 03/07/25 Transmitted 20:08 Code Status CODE 03/07/25 Transmitted 20:08 Sodium Chloride Lock PHA 03/07/25 In Process (Saline Lock Ns) 22:00 Acetaminophen Tablet PHA 03/07/25 In Process (Tylenol Tablet) 20:15 Ondansetron Hcl PHA 03/07/25 In Process (Zofran) 20:15 Complete Blood Count LAB 03/08/25 Verified 04:00 Comprehensive LAB 03/08/25 Verified Metabolic Panel 04:00 Echo 2d Mode Cardiac US 03/07/25 Logged DOP 20:08 Nitroglycerin PHA 03/07/25 In Process Sublingual (Ntrostat 20:15 Morphine Sulfate PHA 03/07/25 In Process Injection 20:15 Oxygen By Nasal RT 03/07/25 Transmitted Cannula 20:08 Stat Ekg For Chest ELENA 03/07/25 In Process Pain 20:08 Notify Of Changes ELENA 03/07/25 In Process From Base 20:08 Olericulture Teacher For ELENA 03/07/25 In Process 24 Hours 20:08 Emergency Dysrhythmia ELENA 03/07/25 In Process Protocol 20:08 Rhythm Strips Once ELENA 03/07/25 In Process Every Shift 20:08 Pantoprazole PHA 03/08/25 In Process (Protonix) 10:00 Sequential ELENA 03/07/25 In Process Compression Device 20:13 R Hip 1v Xray XY 03/07/25 Logged 21:09 Pelvis Ap XY 5/7/25 Logged 21:09 Covid19 Antigen Yvrose LAB 03/07/25 Logged Rapid Influenza A&B LAB 03/07/25 Logged 21:12 Enoxaparin Sodium PHA 03/08/25 Transmitted (Lovenox) 10:00 Enoxaparin Sodium PHA 03/07/25 Transmitted (Lovenox) 21:15 Hydralazine Injection PHA 03/07/25 Transmitted (Apresoline Inject 21:15 Date of Service: March 07, 2025 Billing Provider: ANALILIA MEDINA MD Common Visit Codes: 22760-ZURXZKH INP/OBS CARE (HIGH) Secondary Visit Codes: 69286-[id number] CARE PLAN 30 MINUTES BLAIR [facility] RESIDENT March 07, 2025 21:25
[2025-03-07] MEDS: SODIUM CHLOR 0.9% PF (SALINE LOCK) 10ML VIAL/SYR IV SCH (22:00)
[2025-03-07 22:11] LABS: Folate (Folic Acid) 22.07 ng/mL (>5.38)
[2025-03-07] MEDS: DONEPEZIL HYDROCHLORIDE 5 MG TAB PO ONE (22:25)
[2025-03-07 23:07] LABS: Rapid Influenza A Negative (Negative); Rapid Influenza B Negative (Negative)
[2025-03-07 23:08] LABS: COVID19 ANTIGEN SOFIA FIA NEGATIVE (NEGATIVE)
[2025-03-08] MEDS: ACETAMINOPHEN 325 MG TAB PO PRN (05:14)
[2025-03-08 05:26] LABS: Basophils # (auto) 0 10 ^3/uL (0-0.2); Basophils % (auto) 0.5 % (0.0-2.0); Eosinophils # (auto) 0 10 ^3/uL (0-0.8); Hematocrit 32.7 % (36.0-46.0); Hemoglobin 11.2 g/dL (12.2-16.2); Lymphocytes # (auto) 1.4 10 ^3/uL (0.4-5.4); Lymphocytes % (auto) 12.7 % (10.0-50.0); Mean Corpuscular Hemoglobin 30.9 pg (28.0-32.0); Mean Corpuscular Hgb Conc. 34.3 g/dL (32.0-36.0); Monocytes % (auto) 9.4 % (0.0-12.0); Neutrophils # (auto) 8.4 10 ^3/uL (1.6-8.6); Neutrophils % (auto) 77.4 % (37.0-80.0); Platelet Count (auto) 154 10^3/uL (140-450); Red Blood Cells 3.63 10^6/uL (4.0-5.20); Red Cell Distribution Width 13.4 % (11.8-14.3); White Blood Cell 10.9 10^3/uL (4.4-10.8)
[2025-03-08 05:39] LABS: Alanine Aminotransferase 18 U/L (7-40); Albumin 3.7 g/dL (3.2-4.8); Alkaline Phosphatase 57 U/L (46-116); Anion Gap 9 (5-15); Aspartate Aminotransferase 30 U/L (13-40); BUN/Creatinine Ratio 36.1 (10.0-20.0); Bilirubin, Total 0.9 mg/dL (0.2-1.0); Blood Urea Nitrogen 26 mg/dL (9-23); Carbon Dioxide 23 mmol/L (20-31); Chloride 115 mmol/L (98-107); Creatine Kinase IFCC 449 U/L (34-145); Glucose 109 mg/dL (74-106); Magnesium 2.2 mg/dL (1.6-2.6); Potassium 3.3 mmol/L (3.5-5.1); Sodium 147 mmol/L (136-145); Total Protein 5.8 g/dL (5.7-8.2)
--- NOTE | 2025-03-08 06:11 | DVH ---
EXAM: XR Mandible Limited, 1, 2 or 3 Views CLINICAL INDICATION: R/O FRACTURE TECHNIQUE: Frontal and/or lateral views of the mandible. COMPARISON: None FINDINGS: DENTAL: No acute findings. BONES/JOINTS: Comminuted impacted right intertrochanteric fracture. No dislocation. SOFT TISSUES: Soft tissue swelling. OTHER FINDINGS: . IMPRESSION: Comminuted impacted right intertrochanteric fracture.
--- NOTE | 2025-03-08 07:14 | DVH ---
RIGHT HIP RADIOGRAPH. CLINICAL INDICATION: R/O FRACTURE TECHNIQUE: 4 views of the right hip were obtained. FINDINGS: There is a comminuted and displaced right intertrochanteric fracture. Hansen catheter over lying the bladder. Left hip arthroplasty. IMPRESSION: 1. There is a comminuted and displaced right intertrochanteric fracture.
[2025-03-08 08:38] VITALS: PULSE 70; RESP 16; O2SAT 96
[2025-03-08] MEDS ORDERED: HEPARIN SODIUM (PORCINE) 5000 UNITS/ML 1ML VIAL SC SCH (10:00)
[2025-03-08 10:01] LABS: Triglycerides 103 mg/dL (< 150)
[2025-03-08 10:02] LABS: LDL Cholesterol 75 mg/dL (< 100)
[2025-03-08 10:03] LABS: Cholesterol 131 mg/dL (< 200); HDL Cholesterol 39 mg/dL (40-59)
[2025-03-08 10:08] LABS: INR 1.04 (0.9-1.15); Partial Thromboplastin Time 24.5 SEC (24.5-34.5)
[2025-03-08] MEDS: POTASSIUM EFFERVESENT TAB 25 MEQ PO ONE (10:22)
[2025-03-08] MEDS: ASPirin 81 mg TAB PO SCH (10:22)
[2025-03-08] MEDS: CYANOCOBALAMIN 500 MCG TAB PO SCH (10:23)
[2025-03-08] MEDS: D5W 5% 500 ML IV ONE (10:23)
[2025-03-08] MEDS: PANTOPRAZOLE 40 MG/10 ML VIAL INJ IV SCH (10:23)
[2025-03-08] MEDS: ERGOCALCIFEROL 50,000 UNIT(1.25MG) CAP PO SCH (10:25)
--- NOTE | 2025-03-08 11:23 | DVH ---
CHEST RADIOGRAPH Indication: CHF Technique: Single frontal view of the chest was obtained Comparison: XY CHEST PORTABLE on DOS: 03/07/25 FINDINGS: Lines and Tubes: Left pacemaker/AICD Lungs: No focal consolidation. Pleura: No effusion. No pneumothorax. Cardiomediastinal contours: Unremarkable Bones: No acute osseous abnormality. IMPRESSION: No acute cardiopulmonary disease.
--- NOTE | 2025-03-08 14:12 | DVHINCON2 ---
Date of service: March 08, 2025 Reason for Consultation Right intertrochanteric hip fracture History of Present Illness Mrs. Travis is 80-year-old female who was brought to the hospital by ambulance yesterday after being found on the floor by family friend who was stopping by the check on her yesterday morning. I spoke with the patient's daughter as the patient has severe dementia and was unable to provide history. Patient's daughter reports that the patient has been walking well without assistance before this incident and although she may have severe dementia while at home she is still able to take care of herself as well as prepare her own meals and only needs occasional help. Patient's daughter does report a history of a pacemaker and cardiac issues. Past Medical History severe dementia, HFrEF, history of dilated cardiomyopathy on AICD biventricular, COPD, hypertension, diabetes mellitus type 2 Past Surgical History Appendectomy, hysterectomy, left hip replacement surgery Family History: FH: hypertension FH: lung cancer FH: osteoporosis G8 MOTHER FH: uterine cancer G8 MOTHER Family History Noncontributory Social History Unable to obtain due to patient's dementia Allergies: Coded Allergies: Dicyclomine (Verified Allergy, Unknown, 01/02/19) Penicillins (Verified Allergy, Unknown, 03/07/25) Codeine (Verified Adverse Reaction, Mild, headaches, 01/02/19) Home Meds Active Scripts Ciprofloxacin Hcl (Ciprofloxacin Hcl) 250 Mg Tab, 1 TAB PO BID, #14 TAB Prov:NIKI NO MD 01/28/25 Levofloxacin (Levaquin) 500 Mg Tab, 0.5 TAB PO DAILY for 3 Days, #2 TAB Prov:KARINE MAJANO MD 02/13/22 Sucralfate (CARAFATE) 1 Gm Tab, 1 GM PO QIDACHS for 30 Days, #120 TAB Prov:KARINE MAJANO MD 02/13/22 Pantoprazole Sodium Sesquihydr (Protonix) 40 Mg Tab, 40 MG PO BID for 30 Days, #60 TAB Prov:KARINE MAJANO MD 02/13/22 Atorvastatin Calcium (Lipitor) 10 Mg Tab, 1 TAB PO DAILY for 30 Days, #30 TAB Prov:KARINE MAJANO MD 02/13/22 Reported Medications Donepezil Hydrochloride (Aricept) 5 Mg Tab, 5 MG PO HS, TAB 01/28/25 Aspirin (Aspirin Adult Low Dose) 81 Mg Tab, 81 MG PO DAILY, TAB 01/27/25 Ondansetron HCl (Ondansetron Hydrochloride) 4 Mg/2 Ml Inj, 4 MG IV Q4HPRN PRN for NAUSEA / VOMITING, INJ 01/27/25 Hydrocodone-Acetaminophen (Hydrocodone Bitartrate/AC 5-325 mg) 1 Tab Tab, 1 TAB PO Q4HPRN PRN for MODERATE PAIN (4-6 PAIN SCALE), TAB 01/27/25 Heparin Sodium (Porcine) (Heparin Sodium) 5,000 Unit/0.5 Ml Inj, 5000 UNIT SC BID, INJ 01/27/25 Haloperidol (Haldol) 5 Mg Tb, 1 MG IM BIDPRN PRN for AGITATION, #30 INJ 1 Refill 01/27/25 Ceftriaxone Sodium (Ceftriaxone Sodium) 1 Gm Inj, 1 GM IV DAILY for UTI, INJ 01/27/25 Metformin Hydrochloride (Metformin Hcl) 500 Mg Tab, 1000 MG PO HS for 30 Days, MG 01/01/20 Metformin Hydrochloride (Metformin Hcl) 500 Mg Tab, 500 MG PO QAM for 30 Days, MG 01/01/20 Carvedilol (COREG) 3.125 Mg Tab, 3.125 MG PO BID, TAB 01/01/20 Simvastatin (Simvastatin) 40 Mg Tab, 1 TAB PO HS, #30 TAB 5 Refills 11/22/15 Aspirin (Aspir-81) 81 Mg Tab, 1 TAB PO DAILY, #30 TAB 5 Refills 11/22/15 Spironolactone (Spironolactone) 25 Mg Tab, 1 TAB PO BID, #90 TAB 1 Refill 11/22/15 Carvedilol (COREG) 3.125 Mg Tab, 3.125 MG OR BID, TAB 11/22/15 Metformin Hydrochloride (Metformin Hcl) 500 Mg Tab, 1000 MG PO QPM for 30 Days, MG 11/22/15 Metformin Hydrochloride (Metformin Hcl) 500 Mg Tab, 500 MG PO QAM for 30 Days, MG 11/22/15 Current Medications Current Medications Medications (Trade) Dose Ordered Sig/Gavin Route PRN Reason Start Time Stop Time Status Last Admin Sodium Chloride (Saline Lock Ns) 10 ml Q8HR IV 03/07/25 22:00 03/08/25 05:14 Acetaminophen (Tylenol Tablet) 325 mg Q4HP PRN PO MILD PAIN (1-3 PAIN SCALE) 03/07/25 20:15 03/08/25 05:14 Ondansetron HCl (Zofran) 4 mg Q4HP PRN IV NAUSEA / VOMITING 03/07/25 20:15 Nitroglycerin (Ntrostat Sublingual) 0.4 mg Q5MINP PRN SL FOR CHEST PAIN 03/07/25 20:15 03/08/25 09:37 DC Morphine Sulfate 2 mg Q30M PRN IV FOR CHEST PAIN 03/07/25 20:15 03/08/25 09:37 DC Pantoprazole Sodium (Protonix) 40 mg DAILY IV 03/08/25 10:00 03/08/25 10:23 Enoxaparin Sodium (Lovenox) 40 mg Q24H SC 03/08/25 21:00 03/08/25 06:32 DC Hydralazine HCl (Apresoline Injection) 10 mg Q6HP PRN IV SBP>160 03/07/25 21:15 03/08/25 09:37 DC Donepezil HCl (Aricept Tablet) 5 mg HS PO 03/08/25 22:00 Cyanocobalamin (Vitamin B-12) 500 mcg DAILY PO 03/08/25 10:00 03/08/25 10:23 Aspirin 81 mg DAILY PO 03/08/25 10:00 03/08/25 10:22 Atorvastatin Calcium (Lipitor) 10 mg HS PO 03/08/25 22:00 Heparin Sodium (Porcine) 5,000 units Q12HR SC 03/08/25 10:00 03/08/25 09:37 DC Enoxaparin Sodium (Lovenox) 40 mg DAILY SC 03/09/25 10:00 Ergocalciferol (Vitamin D 50,000 Unit) 50,000 unit Q7D PO 03/08/25 09:45 03/08/25 10:25 Review of Systems 10 point review of systems negative except as per HPI Vital Signs Vital Signs Date Time Temp Pulse Resp B/P (MAP) Pulse Ox O2 Delivery O2 Flow Rate FiO2 03/08/25 12:00 65 17 118/63 (81) 98 03/08/25 08:38 Room Air* 0 21 03/08/25 08:00 98.1 98.1 Physical Exam General appearance: Well developed in no acute distress HEENT: Normal ENT inspection, mild edema and bruising along the left upper eyeli d, pharynx normal, TMs normal Neck: Full range of motion, nontender, normal inspection Respiratory: Chest nontender, without accessory muscle use, no respiratory distress Cardiovascular: No edema, no JVD, normal peripheral pulses Gastrointestinal: Soft, nontender, no organomegaly. Musculoskeletal: Right hip range of motion grossly limited with pain on slight movement, no calf tenderness, normal capillary refill, no pedal edema, neurovascularly intact. Skin: Dry, normal color, warm Lymphatic: No adenopathy Labs/Diagnostic Data Labs Test 03/08/25 07:00 03/08/25 05:00 03/07/25 22:14 03/07/25 18:30 Range/Units Prothrombin Time 11.0 9.3-11.8 sec Prothrombin Time INR 1.04 0.9-1.15 Activated Partial Thromboplast Time 24.5 24.5-34.5 SEC White Blood Count 10.9 #H 4.4-10.8 10^3/uL Red Blood Count 3.63 L 4.0-5.20 10^6/uL Hemoglobin 11.2 L 12.2-16.2 g/dL Hematocrit 32.7 #L 36.0-46.0 % Mean Corpuscular Volume 90.0 80.0-100.0 fL Mean Corpuscular Hemoglobin 30.9 28.0-32.0 pg Mean Corpuscular Hemoglobin Concent 34.3 32.0-36.0 g/dL Red Cell Distribution Width 13.4 11.8-14.3 % Platelet Count 154 140-450 10^3/uL Mean Platelet Volume 8.4 6.9-10.8 fL Neutrophils (%) (Auto) 77.4 37.0-80.0 % Lymphocytes (%) (Auto) 12.7 10.0-50.0 % Monocytes (%) (Auto) 9.4 0.0-12.0 % Eosinophils (%) (Auto) 0.0 0.0-7.0 % Basophils (%) (Auto) 0.5 0.0-2.0 % Neutrophils # (Auto) 8.4 1.6-8.6 10 ^3/uL Lymphocytes # (Auto) 1.4 0.4-5.4 10 ^3/uL Monocytes # (Auto) 1.0 0-1.3 10 ^3/uL Eosinophils # (Auto) 0 0-0.8 10 ^3/uL Basophils # (Auto) 0 0-0.2 10 ^3/uL Nucleated Red Blood Cells 0.0 % Sodium Level 147 H 136-145 mmol/L Potassium Level 3.3 L 3.5-5.1 mmol/L Chloride Level 115 H 98-107 mmol/L Carbon Dioxide Level 23 20-31 mmol/L Anion Gap 9 5-15 Blood Urea Nitrogen 26 H 9-23 mg/dL Creatinine 0.72 0.550-1.02 mg/dL Glomerular Filtration Rate Calc 86 >90 mL/min BUN/Creatinine Ratio 36.1 H 10.0-20.0 Serum Glucose 109 H 74-106 mg/dL Calcium Level 9.0 8.7-10.4 mg/dL Magnesium Level 2.2 1.6-2.6 mg/dL Total Bilirubin 0.9 0.2-1.0 mg/dL Aspartate Amino Transferase (AST) 30 13-40 U/L Alanine Aminotransferase (ALT) 18 7-40 U/L Alkaline Phosphatase 57 46-116 U/L Creatine Kinase 449 H 34-145 U/L Total Protein 5.8 5.7-8.2 g/dL Albumin 3.7 3.2-4.8 g/dL Triglycerides Level 103 < 150 mg/dL Cholesterol Level 131 < 200 mg/dL LDL Cholesterol 75 < 100 mg/dL HDL Cholesterol 39 L 40-59 mg/dL Influenza Type A Antigen Negative Negative Influenza Type B Antigen Negative Negative SARS-CoV-2 Antigen (Rapid) Negative NEGATIVE Troponin I High Sensitivity 145 *H </=34 ng/L Thyroid Stimulating Hormone (TSH) 0.71 0.55-4.78 uIU/mL Test 03/07/25 15:30 03/07/25 15:07 Range/Units Hemoglobin A1c 5.4 <5.7 % A1C Lactic Acid Level 1.9 0.4-2.0 mmol/L B-Type Natriuretic Peptide 26.08 0-100 pg/mL Vitamin B12 Level 1032 H 211-911 pg/mL Vitamin D 25-Hydroxy 13.2 L 30.0-100 ng/mL Folic Acid 22.07 >5.38 ng/mL Urine Color Yellow Yellow Urine Clarity Turbid H Clear Urine pH 5.5 5.0-9.0 Urine Specific [place] 1.026 1.001-1.035 Urine Protein Trace H Negative Urine Ketones 1+ H Negative Urine Blood Negative Negative /uL Urine Nitrite Negative Negative Urine Bilirubin Negative Negative Urine Urobilinogen Normal Negative mg/dL Urine Leukocyte Esterase Negative Negative /uL Urine RBC 1 0 - 4 /hpf Urine Microscopic WBC 2 0-5 /HPF Urine Squamous Epithelial Cells Few <5 /hpf Urine Bacteria Few H None Seen /hpf Urine Mucus Few None Seen Urine Glucose Normal Normal mg/dL Right hip x-ray reviewed and demonstrated: There is a comminuted and displaced right intertrochanteric fracture. Assessment Right comminuted intertrochanteric hip fracture Plan/Recommendation I had a lengthy discussion with the patient's daughter regarding nonoperative versus operative management and after discussing her case with Dr. Ordoñez we have recommended an open versus closed IM nail fixation of her right intertrochanteric hip fracture. I discussed all of the risks and complications involved with surgery including but not limited to bleeding, infection, nerve injury, chronic pain, nonunion, malunion, need for further surgery, blood clots, DVT, PE, cardiac and pulmonary complications, and even . They understood and agreed to proceed with the surgery. We will plan to undergo surgery tomorrow morning if schedule allows and patient remains medically stable and is cleared from a cardiology standpoint. Thank you for allowing us to participate in the care of your patient. Plan discussed with: Patient, Daughter GAYLA LEAL Anabel DAVIS March 08, 2025 14:12
[2025-03-08] MEDS: MORPHINE SULFATE INJ 2 MG/ml SYRG IV PRN (15:10)
[2025-03-08] MEDS: HALOPERIDOL 5 MG TAB PO PRN (17:10)
[2025-03-08] MEDS: HYDROmorphone HCL 2 MG/ML VL/or syr IV ONE (18:09)
--- NOTE | 2025-03-08 19:23 | DVHPNRES ---
Progress Note Date Seen: March 08, 2025 Resident Creating Document: VERNON LOBO RESIDENT Medical Necessity Reason Pt with a Central, PICC or Fol: Yes The following are medically ne: Hansen Catheter Subjective Review of Systems Patient is 80 years old female with a past medical history of dementia, HFrEF, history of dilated cardiomyopathy on AICD biventricular, COPD, hypertension, diabetes mellitus type 2 was brought in by EMS as patient was found on the floor with feces and urine likely after fall. Information was gathered mainly from patient's daughter Ms. Felix [phone] and reviewing chart from EMS. As per daughter family friend came to check on her this morning and found her on the floor lying with feces and urine. Patient reported she fell last night but can not recall detailed. As per family patient also had a fall 1 month back. Daughter reported that she talked to her last night and denied any complaint of chest pain no shortness a breath or fever or dysuria. Past medical history as per HPI Past surgical history: Status post AICD, left hip arthroplasty, left heart catheterization History: Patient lives alone and currently does not smoke, drink or any other drug use Home Medications: Aspirin, donepezil, carvedilol, metformin, simvastatin Review of systems Patient seen and examined at the bedside Alert and oriented x2, following commands Reports right leg pain Denies Chest pain, shortness of breath, headache, abdominal pain, nausea or vomiting Objective vital signs Vital Sign Date Time Temp Pulse Resp B/P (MAP) Pulse Ox O2 Delivery O2 Flow Rate FiO2 03/08/25 18:09 82 20 102/52 03/08/25 16:10 96 03/08/25 08:38 Room Air* 0 21 03/08/25 08:00 98.1 98.1 Total Intake and Output 03/07/25 03/07/25 03/08/25 15:00 23:00 07:00 Intake Total 2100 ml Balance 2100 ml medications Current Medications Medications Dose Ordered Sig/Gavin Route Start Time Stop Time Status Last Admin Dose Admin Sodium Chloride 10 ml Q8HR IV 03/07/25 22:00 03/08/25 05:14 10 ML Acetaminophen 325 mg Q4HP PRN PO 03/07/25 20:15 03/08/25 16:56 325 MG Ondansetron HCl 4 mg Q4HP PRN IV 03/07/25 20:15 Pantoprazole Sodium 40 mg DAILY IV 03/08/25 10:00 03/08/25 10:23 40 MG Donepezil HCl 5 mg HS PO 03/08/25 22:00 Aspirin 81 mg DAILY PO 03/08/25 10:00 03/08/25 10:22 81 MG Enoxaparin Sodium 40 mg DAILY SC 03/09/25 10:00 Ergocalciferol 50,000 unit Q7D PO 03/08/25 09:45 03/08/25 10:25 50,000 UNIT Atorvastatin Calcium 40 mg HS PO 03/08/25 22:00 Morphine Sulfate 2 mg Q4HPRN PRN IV 03/08/25 15:00 03/08/25 15:10 2 MG Haloperidol 5 mg [id number] PRN PO 03/08/25 17:00 03/08/25 17:10 5 MG Examination Constitutional: Patient is alert and oriented x2, does not appear to be any acute distress and is following commands Gen - no pallor, no icterus, no cyanosis, no clubbing, no LAD, no edema . Skin - Patients skin is warm and dry. HEENT - normocephalic, atraumatic, dry mucous membranes. Neck - full ROM, no LAD, no JVD Pulmonary - B/L equal breath sounds, no crackles , no wheezing, no stridor. cardiovascular - regular S1,S2 heard, grade 2/6 systolic murmur heard at the LLSB, peripheral pulses normal radial 2+, pedal 2+. GI - soft, nontender abdomen. no hepatospleenomegaly. Bowel sounds normoactive Neurological - Bilateral upper extremity strength 4/5, left lower extremity strength 3/5, no facial droop, normal speech, no tremor, no sensory deficiets, right lower extremity externally rotated, with tenderness to palpation of the right hip laboratory and microbiology Laboratory Tests 03/08/25 05:00 Test 03/08/25 05:00 Range/Units Serum Glucose 109 H 74-106 mg/dL Microbiology Date/Time Source Procedure Growth Status 03/07/25 15:30 Blood Blood Culture - Preliminary NO GROWTH AFTER 24 HOURS OF INCUBATION. Resulted Problem List/Assessment/Plan Problem List/Assessment/Plan Acute metabolic encephalopathy History of dementia - alert and oriented x2 Heart failure with reduced ejection fraction, no exacerbation Status post biventricular AICD Dilated cardiomyopathy NSTEMI likely type 2 - ECG reviewed, sinus rhythm with a left bundle-branch block - last echo from June 2022 showed LVEF 45%, - left heart catheterization in January 2022 showed LVEF 20-25% - cardiology consult for clearance from surgery Right femur intertrochanteric fracture status post fall S/p left hip arthroplasty - hip x-ray shows right comminuted and displaced right intercondylar - orthopedics consulted and planned for surgery tomorrow - pain management - head CT shows no acute intracranial abnormality - cervical CT shows no acute cervical spine fracture, disc disease with loss of disc height at C6-C7 ? Acute rhabdomyolysis - elevated CK - IV fluids Hypernatremia likely due to dehydration - free water deficit 1.5 L - D5W PUD prophylaxis: Protonix DVT prophylaxis: Enoxaparin Goals of care discussed with the patient's daughter Elvira at bedside for over 23 minutes. Full code Plan discussed with Dr. Oscar Plan discussed with: Daughter, Other (RN ( Shilpa )) My Orders My Orders Orders - VERNON LOBO RESIDENT Procedure Category Date Status Time D5w 5% (Dextrose 5%) PHA 03/08/25 In Process 10:00 Electrocardigram EKG 03/08/25 Logged 09:59 Atorvastatin (Lipitor) PHA 03/08/25 In Process 22:00 Morphine Sulfate PHA 03/08/25 In Process Injection 15:00 *Consult Dr. Guadalupe CONS 03/08/25 Transmitted [place] 14:49 Hydromorphone PHA 03/08/25 Verified Injection (Dilaudid 18:45 Date of Service: March 08, 2025 Billing Provider: ANNE MARIE OSCAR MD Common Visit Codes: [id number] INP/OBS CARE(HIGH) VERNON LOBO RESIDENT March 08, 2025 19:23 ANNE MARIE OSCAR MD March 10, 2025 15:38
[2025-03-08 20:05] VITALS: PULSE 73; RESP 18; O2SAT 94
--- NOTE | 2025-03-08 20:52 | ECG ---
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
[2025-03-08] MEDS ORDERED: ENOXAPARIN SOD 40 MG/0.4 ML SYRINGE SC SCH (21:00)
[2025-03-08] MEDS ORDERED: DONEPEZIL HYDROCHLORIDE 5 MG TAB PO SCH (22:00)
[2025-03-08] MEDS: ATORVASTATIN 20 MG TAB PO SCH (22:00)
[2025-03-08] MEDS ORDERED: ATORVASTATIN 20 MG TAB PO SCH (22:00)
[2025-03-08 22:42] VITALS: BP 131/68; PULSE 61; RESP 18; TEMP 97.6; O2SAT 99
[2025-03-08] MEDS ORDERED: CYA100I IM (23:57)
[2025-03-09] VITALS (9 sets, daily range): BP systolic 121–136; BP diastolic 54–79; PULSE 61–81; RESP 14–18; TEMP 97.3–99.3; O2SAT 98–100
[2025-03-09 06:13] LABS: Anion Gap 10 (5-15); Carbon Dioxide 25 mmol/L (20-31); Potassium 3.7 mmol/L (3.5-5.1); Sodium 144 mmol/L (136-145)
[2025-03-09 06:14] LABS: Basophils # (auto) 0.1 10 ^3/uL (0-0.2); Basophils % (auto) 0.8 % (0.0-2.0); Eosinophils # (auto) 0.2 10 ^3/uL (0-0.8); Eosinophils % (auto) 2.4 % (0.0-7.0); Hemoglobin 10.3 g/dL (12.2-16.2); Lymphocytes # (auto) 1.6 10 ^3/uL (0.4-5.4); Lymphocytes % (auto) 20.5 % (10.0-50.0); Mean Corpuscular Hemoglobin 30.5 pg (28.0-32.0); Mean Corpuscular Hgb Conc. 34.2 g/dL (32.0-36.0); Mean Corpuscular Volume 89.1 fL (80.0-100.0); Monocytes # (auto) 0.8 10 ^3/uL (0-1.3); Monocytes % (auto) 9.8 % (0.0-12.0); Neutrophils # (auto) 5.1 10 ^3/uL (1.6-8.6); Neutrophils % (auto) 66.5 % (37.0-80.0); Platelet Count (auto) 150 10^3/uL (140-450); Red Blood Cells 3.37 10^6/uL (4.0-5.20); Red Cell Distribution Width 13.2 % (11.8-14.3); White Blood Cell 7.7 10^3/uL (4.4-10.8)
[2025-03-09 06:16] LABS: Calcium 8.1 mg/dL (8.7-10.4); Chloride 109 mmol/L (98-107)
[2025-03-09 06:19] LABS: BUN/Creatinine Ratio 33.3 (10.0-20.0); Blood Urea Nitrogen 22 mg/dL (9-23); Glucose 101 mg/dL (74-106)
[2025-03-09 06:20] LABS: Magnesium 2.1 mg/dL (1.6-2.6)
--- NOTE | 2025-03-09 08:33 | DVHPN2 ---
Progress Note - Dictate Date Seen: March 08, 2025 Medical Necessity Reason Pt with a Central, PICC or Fol: Yes The following are medically ne: Hansen Catheter Subjective PT WITH FALL NOW WITH RIGHT HIP FRACTURE [facility] 02/20 PATENT CAD EF 40% S/P DUAL AICD DIABETES II VASCULOPATHY NEUROPATHY NEPHROPATHY HTN DYSLIPIDEMIA HRrEF CHRONIC ORGANIC BRAIN SYNDROME WAS FOUND DOWN BY DAUGHTER objective vital signs Vital Sign Date Time Temp Pulse Resp B/P (MAP) Pulse Ox O2 Delivery O2 Flow Rate FiO2 03/09/25 05:00 98.6 66 18 121/66 (84) 99 98.6 03/08/25 22:42 Nasal Cannula* 2 28 Total Intake and Output 03/08/25 03/08/25 03/09/25 15:00 23:00 07:00 Intake Total 200 ml 200 ml 0 ml Output Total 250 ml Balance 200 ml 200 ml -250 ml medications Current Medications Medications Dose Ordered Sig/Gavin Route Start Time Stop Time Status Last Admin Dose Admin Sodium Chloride 10 ml Q8HR IV 03/07/25 22:00 03/09/25 05:04 10 ML Acetaminophen 325 mg Q4HP PRN PO 03/07/25 20:15 03/08/25 16:56 325 MG Ondansetron HCl 4 mg Q4HP PRN IV 03/07/25 20:15 Pantoprazole Sodium 40 mg DAILY IV 03/08/25 10:00 03/08/25 10:23 40 MG Aspirin 81 mg DAILY PO 03/08/25 10:00 03/08/25 10:22 81 MG Enoxaparin Sodium 40 mg DAILY SC 03/09/25 10:00 Ergocalciferol 50,000 unit Q7D PO 03/08/25 09:45 03/08/25 10:25 50,000 UNIT Atorvastatin Calcium 40 mg HS PO 03/08/25 22:00 Haloperidol 5 mg [id number] PRN PO 03/08/25 17:00 03/08/25 17:10 5 MG Hydromorphone HCl 0.5 mg Q4HPRN PRN IV 03/08/25 18:45 objective General Appearance: Moderate Distress HEENT: Normal ENT Inspection, Pharynx Normal, TMs Normal Neck: Full Range of Motion, Non-Tender, Normal, Normal Inspection Respiratory: Chest Non-Tender, Lungs Clear, No Accessory Muscle Use, No Respiratory Distress, Normal Breath Sounds Cardiovascular: No Edema, No JVD, No Murmur, No Gallop, Normal Peripheral Pulses, Regular Rate/Rhythm Breast Exam: Deferred Gastrointestinal: No Organomegaly, Non Tender, No Pulsatile Mass, Normal Bowel Sounds, Soft Genitalia: Deferred Pelvic: Deferred Rectal: Deferred Extremities: No calf tenderness, Normal capillary refill, No pedal edema RIGHT HIP TENDERNESS/ Musculoskeletal : Apperance: Normal Neurologic: Alert, cartridge belt puncher II-XII nml as Tested, Motor Weakness, Normal Affect, Normal Mood, No Sensory Deficits Cerebellar Function: Normal Reflexes: Normal Skin: Dry, Normal Color, Warm Lymphatic: No Adenopathy laboratory and microbiology Laboratory Tests 03/09/25 04:54 Test 03/09/25 04:54 Range/Units Serum Glucose 101 74-106 mg/dL Problem List RIGHT HIP FRACTURE/ FEMORAL FRACTURE [facility] 02/20 PATENT CAD EF 40% S/P DUAL AICD DIABETES II VASCULOPATHY NEUROPATHY NEPHROPATHY HTN DYSLIPIDEMIA HRrEF CHRONIC DEMENTIA ETIOLOGY OF FALL UNCLEAR ANEMIA Assessment/Plan FROM CARDIAC [place] STABLE RO [place] ARTHROPLASTY OR ORIF ASA III KEEP HCT >28 ECHO SHOWS EF OF 40-45% NORMAL CORONARIES Plan discussed with: Daughter, Other LIU BEAULIEU MD March 09, 2025 08:33
[2025-03-09] MEDS: BUPIVACAINE 0.5% P/F INJ 10 ML VIAL ONE (09:15)
[2025-03-09] MEDS ORDERED: MIDAZOLAM HCL 2MG/2ML 2ml VIAL (1mg/ml) ONE (09:20)
[2025-03-09] MEDS ORDERED: fentaNYL CITRATE 100 MCG/2 ML VL ONE (09:20)
[2025-03-09] MEDS ORDERED: PROPOFOL 10 MG/ML 20 ML IV ONE (09:21)
[2025-03-09] MEDS ORDERED: ePHEDrine SULFATE 50 MG/ML AMP ONE (09:21)
[2025-03-09] MEDS ORDERED: ONDANSETRON HCL 4 MG/2 ML VIAL ONE (09:21)
[2025-03-09] MEDS ORDERED: KETAMINE 50mg/ML 10ml Vial 10 ML ONE (09:21)
[2025-03-09] MEDS ORDERED: GLYCOPYRROLATE 0.2 MG/ML 1ML VIAL ONE (09:21)
[2025-03-09] MEDS: ENOXAPARIN SOD 40 MG/0.4 ML SYRINGE SC SCH (10:00)
[2025-03-09] MEDS: ceFAZolin 2 GM/D5W50ml 50 ML IV ONE (10:05)
--- NOTE | 2025-03-09 10:06 | ECG ---
[facility] Test Date: 2025-03-09 Test Time: 01:57:52 Pat Name: GLORIA DAVID Department: Respiratoy Room: 0217T B Gender: F School Health Assistant: YASMIN : 1945 Requested By: LIU BEAULIEU Order Number: [id number] Reading MD: Tyler Lind Measurements Intervals [place] Rate: 85 P: 15 RI: 62 QRS: 0 QRSD: 153 T: 0 QT: 433 QTc: 515 Interpretive Statements Atrial-sensed ventricular-paced complexes No further analysis attempted due to paced rhythm Electronically Signed On 03-14-2025 11:56:31 PDT by Tyler Lind Please click the below link to view image of tracing.
--- NOTE | 2025-03-09 11:49 | DVHOP2 ---
Operative Report - 2 Report Details Date: 03/09/25 Preop Diagnosis: Right hip displaced intertrochanteric fracture Postop Diagnosis: Right hip displaced intertrochanteric fracture Surgeon: Sae Lees MD Anesthesiologist: Tony Anesthesia: Regional Implant: Orthofix short nail, 130, 10 mm diameter, 95 mm hip screw, 30 mm distal locking screw Consent: The patient was informed of the risks and benefits of the procedure. These include but are not limited to complications of anesthesia, postoperative infection, incomplete relief of symptoms, recurrence of symptoms, damage to blood vessels, nerves and tendons, deep venous thrombosis, pulmonary embolism and possible need for repeat surgery in the future. Complications: None Estimated Blood Loss: 75 cc Fluids: See anesthesia record Findings: Right proximal humerus comminuted displaced intertrochanteric fracture with significant osteopenia Indications for Surgery: Unstable hip fracture Name of Procedure Performed Right proximal femur intertrochanteric fracture closed reduction cephalomedullar y nail C-arm fluoroscopy Procedure Details Procedure Details: The patient was brought to the operating room and placed on the [place] table in the supine position. The patient was given spinal anesthetic. Preop patient re ceived IV Ancef. Nonoperative extremity was placed in the well-leg miller. Operative extremity placed in boot traction. Closed reduction maneuver performed and verified with C-arm fluoroscopy in AP and lateral views. Surgical timeout performed verifying patient, laterality and procedure. Operative extremity was prepped and draped in sterile fashion. Incision was made proximal to the greater trochanter then I incised the fascia. I passed a guidewire into the proximal femur and adjusted the position based on AP and lateral views with C arm. I used the soft tissue protector and reamed over the guidewire then guidewire was removed. I then inserted the previously templated nail until appropriate depth was reached based on C-arm fluoroscopy. I then passed the hip screw cannula to skin then made skin and fascial incision and passed it to bone. I inserted a guidewire into the proximal femoral neck and head and again adjusted position based on C arm. I measured for length. I then reamed and inserted the hip screw. Guidewire and cannula were removed. I then used the distal locking cannula through the static hole passing it to skin and making skin and fascial incision then passing it to bone. I drilled and measured length off the drill bit and inserted distal locking screw. I obtain C arm views AP and lateral throughout the length of the construct to verify fracture reduction and hardware placement. Wounds were irrigated with normal saline. Fascial tissue closed with 0 Vicryl. Subcu closed with 2-0 Vicryl. Skin closed with constantin. Wounds dressed sterilely. Patient tolerated procedure well was brought to recovery in stable condition. Condition Stable Disposition Still a Patient SAE LEES MD March 09, 2025 11:49
[2025-03-09] MEDS ORDERED: HYDROmorphone HCL 2 MG/ML VL/or syr IV PRN (12:00)
--- NOTE | 2025-03-09 12:30 | DVH ---
XY R HIP COMPLETE XRAY INDICATION: RIGHT HIP TROCH NAIL TECHNIQUE: Intraoperative fluoroscopic images were obtained Cumulative dose: 8.57 mGy COMPARISON: None FINDINGS: Successful intraoperative fluoroscopic guidance. IMPRESSION: 1. Successful intraoperative fluoroscopic guidance and please follow up with surgical report.
--- NOTE | 2025-03-09 13:54 | DVH ---
C-ARM FLUOROSCOPY: PROCEDURE: RIGHT HIP TROCHANTERIC NAIL FLUOROSCOPY TIME: 62 SEC DAP: 8.57 mgy FINDINGS: Spot intraoperative C arm radiographs demonstrating RIGHT HIP TROCHANTERIC NAIL . IMPRESSION: Please refer to surgical report for detailed findings.
[2025-03-09] MEDS: SODIUM CHLOR 0.9% PF (SALINE LOCK) 10ML VIAL/SYR IV SCH (14:22)
[2025-03-09] MEDS: ceFAZolin 2 GM/D5W50ml 50 ML IV SCH (14:22)
[2025-03-09] MEDS: LACTATED RINGER'S 1,000 ML IV SCH (14:23)
[2025-03-09] MEDS: HYDROmorphone HCL 2 MG/ML VL/or syr IV PRN (15:19)
--- NOTE | 2025-03-09 21:36 | DVHPNRES ---
Progress Note Date Seen: March 09, 2025 Resident Creating Document: VERNON LOBO RESIDENT Medical Necessity Reason Pt with a Central, PICC or Fol: Yes The following are medically ne: Hansen Catheter Subjective Review of Systems Patient seen and examined at the bedside s/p right femur surgery Objective vital signs Vital Sign Date Time Temp Pulse Resp B/P (MAP) Pulse Ox O2 Delivery O2 Flow Rate FiO2 03/09/25 21:00 98.1 67 17 124/54 (77) 99 98.1 03/09/25 20:00 Nasal Cannula* 2 28 Total Intake and Output 03/08/25 03/08/25 03/09/25 15:00 23:00 07:00 Intake Total 200 ml 200 ml 0 ml Output Total 250 ml Balance 200 ml 200 ml -250 ml medications Current Medications Medications Dose Ordered Sig/Gavin Route Start Time Stop Time Status Last Admin Dose Admin Acetaminophen 325 mg Q4HP PRN PO 03/07/25 20:15 03/08/25 16:56 325 MG Ondansetron HCl 4 mg Q4HP PRN IV 03/07/25 20:15 Pantoprazole Sodium 40 mg DAILY IV 03/08/25 10:00 03/09/25 09:38 40 MG Enoxaparin Sodium 40 mg DAILY SC 03/09/25 10:00 Ergocalciferol 50,000 unit Q7D PO 03/08/25 09:45 03/08/25 10:25 50,000 UNIT Atorvastatin Calcium 40 mg HS PO 03/08/25 22:00 Haloperidol 5 mg [id number] PRN PO 03/08/25 17:00 03/09/25 16:47 5 MG Hydromorphone HCl 0.5 mg Q4HPRN PRN IV 03/08/25 18:45 03/09/25 15:19 0.5 MG Lactated Ringer's 1,000 ml @ 100 mls/hr Q10H IV 03/09/25 11:45 03/09/25 14:23 100 MLS/HR Sodium Chloride 10 ml Q8HR IV 03/09/25 14:00 03/09/25 14:22 10 ML Acetaminophen/ Hydrocodone Bitart 1 tab Q4HP PRN PO 03/09/25 11:45 Cefazolin Sodium/ Dextrose 50 ml @ 50 mls/hr Q8HR IV 03/09/25 14:00 03/09/25 22:59 03/09/25 14:22 50 MLS/HR Examination Constitutional: Patient is alert and oriented x2, does not appear to be any acute distress and is following commands Gen - no pallor, no icterus, no cyanosis, no clubbing, no LAD, no edema . Skin - Patients skin is warm and dry. HEENT - normocephalic, atraumatic, dry mucous membranes. Neck - full ROM, no LAD, no JVD Pulmonary - B/L equal breath sounds, no crackles , no wheezing, no stridor. cardiovascular - regular S1,S2 heard, grade 2/6 systolic murmur heard at the LLSB, peripheral pulses normal radial 2+, pedal 2+. GI - soft, nontender abdomen. no hepatospleenomegaly. Bowel sounds normoactive Neurological - Bilateral upper extremity strength 4/5, left lower extremity strength 3/5, no facial droop, normal speech, no tremor, no sensory deficiets, right lower extremity externally rotated, with tenderness to palpation of the right hip laboratory and microbiology Laboratory Tests 03/09/25 04:54 Test 03/09/25 04:54 Range/Units Serum Glucose 101 74-106 mg/dL Microbiology Date/Time Source Procedure Growth Status 03/09/25 06:10 Nose MRSA Screen - Final Complete 03/07/25 15:30 Blood Blood Culture - Preliminary NO GROWTH AFTER 48 HOURS OF INCUBATION. Resulted Problem List/Assessment/Plan Problem List/Assessment/Plan Acute metabolic encephalopathy History of dementia - alert and oriented x2 Heart failure with reduced ejection fraction, no exacerbation Status post biventricular AICD Dilated cardiomyopathy NSTEMI likely type 2 - ECG reviewed, sinus rhythm with a left bundle-branch block - last echo from June 2022 showed LVEF 45%, - left heart catheterization in January 2022 showed LVEF 20-25% - cardiology cleared patient for surgery Right femur intertrochanteric fracture status post fall S/P Right proximal femur intertrochanteric fracture closed reduction H/o left hip arthroplasty - hip x-ray shows right comminuted and displaced right intercondylar - pain management - head CT shows no acute intracranial abnormality - cervical CT shows no acute cervical spine fracture, disc disease with loss of disc height at C6-C7 ?Acute rhabdomyolysis - elevated CK - IV fluids Hypernatremia likely due to dehydration - free water deficit 1.5 L - D5W - hypernatremia resolved PUD prophylaxis: Protonix DVT prophylaxis: Enoxaparin Goals of care discussed with the patient's daughter for over 23 minutes. Full code Plan discussed with Dr. Machado Plan discussed with: Daughter My Orders My Orders Orders - VERNON LOBO Procedure Category Date Status Time * Dietary Consult CONS 03/09/25 Transmitted 20:10 Apply Barrier Cream ELENA 03/09/25 In Process 15:30 Dietary Evaluation Review Comments: 1. PPN if continue NPO 2. Advance to regular diet as medically feasible 3. Continue current plan of care Expected Outcomes/Goals: Pt will meet 75% estimated needs Fu 2-3 days Date of Service: March 09, 2025 Billing Provider: ANNE MARIE MACHADO MD Common Visit Codes: [id number] INP/OBS CARE(HIGH) VERNON LOBO RESIDENT March 09, 2025 21:36 ANNE MARIE MACHADO MD March 10, 2025 15:47
[2025-03-10] VITALS (9 sets, daily range): BP systolic 104–115; BP diastolic 50–70; PULSE 60–92; RESP 17–19; TEMP 97.7–98.5; O2SAT 95–99
[2025-03-10] MEDS: HYDROcodone-ACET 10/325MG TAB PO PRN (00:14)
[2025-03-10 07:22] LABS: Basophils # (auto) 0 10 ^3/uL (0-0.2); Basophils % (auto) 0.7 % (0.0-2.0); Eosinophils # (auto) 0.2 10 ^3/uL (0-0.8); Eosinophils % (auto) 3.3 % (0.0-7.0); Hematocrit 25.4 % (36.0-46.0); Hemoglobin 8.8 g/dL (12.2-16.2); Lymphocytes # (auto) 1.4 10 ^3/uL (0.4-5.4); Lymphocytes % (auto) 19.7 % (10.0-50.0); Mean Corpuscular Hemoglobin 30.9 pg (28.0-32.0); Mean Corpuscular Hgb Conc. 34.6 g/dL (32.0-36.0); Mean Corpuscular Volume 89.4 fL (80.0-100.0); Monocytes # (auto) 0.8 10 ^3/uL (0-1.3); Monocytes % (auto) 11.5 % (0.0-12.0); Neutrophils # (auto) 4.5 10 ^3/uL (1.6-8.6); Neutrophils % (auto) 64.8 % (37.0-80.0); Platelet Count (auto) 155 10^3/uL (140-450); Red Blood Cells 2.84 10^6/uL (4.0-5.20); Red Cell Distribution Width 12.8 % (11.8-14.3); White Blood Cell 6.9 10^3/uL (4.4-10.8)
[2025-03-10 07:33] LABS: Anion Gap 9 (5-15); Carbon Dioxide 26 mmol/L (20-31); Chloride 106 mmol/L (98-107); Potassium 3.5 mmol/L (3.5-5.1); Sodium 141 mmol/L (136-145)
[2025-03-10 07:39] LABS: Blood Urea Nitrogen 13 mg/dL (9-23); Glucose 101 mg/dL (74-106)
[2025-03-10 07:44] LABS: Calcium 8.4 mg/dL (8.7-10.4)
--- NOTE | 2025-03-10 11:20 | DVHPN2 ---
Progress Note - Dictate Date Seen: March 10, 2025 Medical Necessity Reason Pt with a Central, PICC or Fol: Yes The following are medically ne: Hansen Catheter Subjective Patient alert but confused. No pain complaint. vital signs Vital Sign Date Time Temp Pulse Resp B/P (MAP) Pulse Ox O2 Delivery O2 Flow Rate FiO2 03/10/25 09:25 97.7 87 19 111/56 (74) 97 97.7 03/09/25 20:00 Nasal Cannula* 2 28 Total Intake and Output 03/09/25 03/09/25 03/10/25 15:00 23:00 07:00 Intake Total 100 ml 170 ml 350 ml Output Total 375 ml 400 ml Balance 100 ml -205 ml -50 ml medications Current Medications Medications Dose Ordered Sig/Gavin Route Start Time Stop Time Status Last Admin Dose Admin Acetaminophen 325 mg Q4HP PRN PO 03/07/25 20:15 03/08/25 16:56 325 MG Ondansetron HCl 4 mg Q4HP PRN IV 03/07/25 20:15 Pantoprazole Sodium 40 mg DAILY IV 03/08/25 10:00 03/10/25 09:46 40 MG Enoxaparin Sodium 40 mg DAILY SC 03/09/25 10:00 03/10/25 09:48 40 MG Ergocalciferol 50,000 unit Q7D PO 03/08/25 09:45 03/08/25 10:25 50,000 UNIT Atorvastatin Calcium 40 mg HS PO 03/08/25 22:00 03/09/25 21:34 40 MG Haloperidol 5 mg [id number] PRN PO 03/08/25 17:00 03/09/25 16:47 5 MG Hydromorphone HCl 0.5 mg Q4HPRN PRN IV 03/08/25 18:45 03/09/25 21:36 0.5 MG Lactated Ringer's 1,000 ml @ 100 mls/hr Q10H IV 03/09/25 11:45 03/09/25 14:23 100 MLS/HR Sodium Chloride 10 ml Q8HR IV 03/09/25 14:00 03/10/25 05:21 10 ML Acetaminophen/ Hydrocodone Bitart 1 tab Q4HP PRN PO 03/09/25 11:45 03/10/25 05:20 1 TAB objective alert right hip dressing intact and dry no calf eema or ttp distal nv intact laboratory and microbiology Laboratory Tests 03/10/25 05:52 Test 03/10/25 05:52 Range/Units Serum Glucose 101 74-106 mg/dL Assessment/Plan POD #1 s/p CR, CM nail right intertroch fracture prox femur stable postop Plan: OOB to chair tid PT WBAT BID with walker transfer to SNF for rehab daily dry dressing to start in 6 days dc constantin POD #12 FU [place] 2 weeks with new hip xrays DVT prophylaxis per IM Dietary Evaluation Review Comments: 1. PPN if continue NPO 2. Advance to regular diet as medically feasible 3. Continue current plan of care Expected Outcomes/Goals: Pt will meet 75% estimated needs Fu 2-3 days Plan discussed with: Patient JOCELYNN LEES MD March 10, 2025 11:20
[2025-03-10] MEDS ORDERED: AMOXICILLIN/CLAVUL 875 MG TAB PO SCH (14:00)
--- NOTE | 2025-03-10 16:11 | DVHPNRES ---
Progress Note Date Seen: March 10, 2025 Resident Creating Document: LINDA PECK RESIDENT Medical Necessity Reason Pt with a Central, PICC or Fol: Yes The following are medically ne: Hansen Catheter Subjective Review of Systems Patient seen and examined at bedside Patient alert however patient is sleepy, oriented. Generalized weakness Plan for physical therapy Physician service has been consulted for penitentiary facility Family has been aware No any complaints from passenger agent Objective vital signs Vital Sign Date Time Temp Pulse Resp B/P (MAP) Pulse Ox O2 Delivery O2 Flow Rate FiO2 03/10/25 13:00 97.9 91 19 115/55 (75) 96 97.9 03/10/25 07:30 Room Air* 2 N/A Nasal Cannula* Total Intake and Output 03/09/25 03/09/25 03/10/25 15:00 23:00 07:00 Intake Total 100 ml 170 ml 350 ml Output Total 375 ml 400 ml Balance 100 ml -205 ml -50 ml medications Current Medications Medications Dose Ordered Sig/Gavin Route Start Time Stop Time Status Last Admin Dose Admin Acetaminophen 325 mg Q4HP PRN PO 03/07/25 20:15 03/08/25 16:56 325 MG Ondansetron HCl 4 mg Q4HP PRN IV 03/07/25 20:15 Pantoprazole Sodium 40 mg DAILY IV 03/08/25 10:00 03/10/25 09:46 40 MG Enoxaparin Sodium 40 mg DAILY SC 03/09/25 10:00 03/10/25 09:48 40 MG Ergocalciferol 50,000 unit Q7D PO 03/08/25 09:45 03/08/25 10:25 50,000 UNIT Atorvastatin Calcium 40 mg HS PO 03/08/25 22:00 03/09/25 21:34 40 MG Haloperidol 5 mg [id number] PRN PO 03/08/25 17:00 03/09/25 16:47 5 MG Hydromorphone HCl 0.5 mg Q4HPRN PRN IV 03/08/25 18:45 03/09/25 21:36 0.5 MG Lactated Ringer's 1,000 ml @ 100 mls/hr Q10H IV 03/09/25 11:45 03/09/25 14:23 100 MLS/HR Sodium Chloride 10 ml Q8HR IV 03/09/25 14:00 03/10/25 13:24 10 ML Acetaminophen/ Hydrocodone Bitart 1 tab Q4HP PRN PO 03/09/25 11:45 03/10/25 13:22 1 TAB Examination Constitutional: Patient is alert and oriented x2, does not appear to be any acute distress and is following commands Gen - no pallor, no icterus, no cyanosis, no clubbing, no LAD, no edema . Skin - Patients skin is warm and dry. HEENT - normocephalic, atraumatic, dry mucous membranes. Neck - full ROM, no LAD, no JVD Pulmonary - B/L equal breath sounds, no crackles , no wheezing, no stridor. cardiovascular - regular S1,S2 heard, grade 2/6 systolic murmur heard at the LLSB, peripheral pulses normal radial 2+, pedal 2+. GI - soft, nontender abdomen. no hepatospleenomegaly. Bowel sounds normoactive Neurological - Bilateral upper extremity strength 4/5, left lower extremity strength 3/5, no facial droop, normal speech, no tremor, no sensory deficiets, right lower extremity externally rotated, with tenderness to palpation of the right hip laboratory and microbiology Laboratory Tests 03/10/25 05:52 Test 03/10/25 05:52 Range/Units Serum Glucose 101 74-106 mg/dL Microbiology Date/Time Source Procedure Growth Status 03/09/25 06:10 Nose MRSA Screen - Final Complete 03/07/25 15:30 Blood Blood Culture - Preliminary NO GROWTH AFTER 72 HOURS OF INCUBATION. Resulted Problem List/Assessment/Plan Problem List/Assessment/Plan Right femur intertrochanteric fracture status post fall S/P Right proximal femur intertrochanteric fracture closed reduction H/o left hip arthroplasty - hip x-ray shows right comminuted and displaced right intercondylar - pain management - head CT shows no acute intracranial abnormality - cervical CT shows no acute cervical spine fracture, disc disease with loss of disc height at C6-C7 Social service has been consulted for penitentiary facility for rehabilitation Family has been aware Acute metabolic encephalopathy: Resolved History of dementia - alert and oriented x2 Heart failure with reduced ejection fraction, no exacerbation Status post biventricular AICD Dilated cardiomyopathy NSTEMI likely type 2 - ECG reviewed, sinus rhythm with a left bundle-branch block - last echo from June 2022 showed LVEF 45%, - left heart catheterization in January 2022 showed LVEF 20-25% - cardiology cleared patient for surgery Acute rhabdomyolysis - IV fluids -continue to monitor kidney function Hypernatremia likely due to dehydration - free water deficit 1.5 L - D5W - hypernatremia resolved -continue IV fluids PUD prophylaxis: Protonix DVT prophylaxis: Enoxaparin Goals of care discussed with the patient's daughter for over 23 minutes. Full code Patient is status post closed reduction for right hip comminuted fracture, DC planning, social service has been consulted for penitentiary facility for rehabilitation. Patient will be discharged when bed available. Plan discussed with Dr. 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 PPN if continue NPO 2. Advance to regular diet as medically feasible 3. Continue current plan of care Expected Outcomes/Goals: Pt will meet 75% estimated needs Fu 2-3 days Date of Service: March 10, 2025 Billing Provider: ANNE MARIE MACHADO MD Common Visit Codes: [id number] INP/OBS CARE(MOD) LINDA PECK March 10, 2025 16:11 ANNE MARIE MACHADO MD March 12, 2025 14:10
[2025-03-11] VITALS (8 sets, daily range): BP systolic 99–113; BP diastolic 57–69; PULSE 72–89; RESP 18–19; TEMP 97.8–100.1; O2SAT 93–99
[2025-03-11 06:25] LABS: Basophils # (auto) 0 10 ^3/uL (0-0.2); Basophils % (auto) 0.3 % (0.0-2.0); Eosinophils # (auto) 0.2 10 ^3/uL (0-0.8); Hematocrit 24.2 % (36.0-46.0); Hemoglobin 8.5 g/dL (12.2-16.2); Lymphocytes # (auto) 1.1 10 ^3/uL (0.4-5.4); Lymphocytes % (auto) 16.2 % (10.0-50.0); Mean Corpuscular Hemoglobin 30.8 pg (28.0-32.0); Mean Corpuscular Hgb Conc. 35.1 g/dL (32.0-36.0); Mean Corpuscular Volume 87.8 fL (80.0-100.0); Monocytes # (auto) 0.8 10 ^3/uL (0-1.3); Monocytes % (auto) 11.2 % (0.0-12.0); Neutrophils # (auto) 4.7 10 ^3/uL (1.6-8.6); Neutrophils % (auto) 69.3 % (37.0-80.0); Platelet Count (auto) 164 10^3/uL (140-450); Red Blood Cells 2.76 10^6/uL (4.0-5.20); White Blood Cell 6.8 10^3/uL (4.4-10.8)
[2025-03-11 06:42] LABS: Anion Gap 9 (5-15); Carbon Dioxide 27 mmol/L (20-31); Chloride 105 mmol/L (98-107); Sodium 141 mmol/L (136-145)
[2025-03-11 06:48] LABS: BUN/Creatinine Ratio 22.2 (10.0-20.0); Blood Urea Nitrogen 12 mg/dL (9-23)
[2025-03-11 06:55] LABS: Calcium 8.7 mg/dL (8.7-10.4); Glucose 116 mg/dL (74-106); Potassium 3.4 mmol/L (3.5-5.1)
[2025-03-11] MEDS ORDERED: POLYETHYLENE GLYCOL 17 GM PWDR PO PRN (12:00)
[2025-03-11] MEDS: POTASSIUM EFFERVESENT TAB 25 MEQ PO ONE (14:20)
--- NOTE | 2025-03-11 17:43 | DVHPNRES ---
Progress Note Date Seen: March 11, 2025 Resident Creating Document: VERNON LOBO RESIDENT Medical Necessity Reason Pt with a Central, PICC or Fol: Yes The following are medically ne: Hansen Catheter Subjective Review of Systems Patient seen and examined at bedside Patient alert and oriented X 2 Generalized weakness Plan for physical therapy social service has been consulted for half-way facility No new complaints Objective vital signs Vital Sign Date Time Temp Pulse Resp B/P (MAP) Pulse Ox O2 Delivery O2 Flow Rate FiO2 03/11/25 08:00 85 03/11/25 07:30 Room Air* 2 N/A Nasal Cannula* 03/11/25 05:00 97.9 19 104/57 (73) 99 97.9 Total Intake and Output 03/10/25 03/10/25 03/11/25 15:00 23:00 07:00 Intake Total 300 ml 240 ml Balance 300 ml 240 ml medications Current Medications Medications Dose Ordered Sig/Gavin Route Start Time Stop Time Status Last Admin Dose Admin Acetaminophen 325 mg Q4HP PRN PO 03/07/25 20:15 03/08/25 16:56 325 MG Ondansetron HCl 4 mg Q4HP PRN IV 03/07/25 20:15 Pantoprazole Sodium 40 mg DAILY IV 03/08/25 10:00 03/11/25 09:17 40 MG Enoxaparin Sodium 40 mg DAILY SC 03/09/25 10:00 03/11/25 09:17 40 MG Ergocalciferol 50,000 unit Q7D PO 03/08/25 09:45 03/08/25 10:25 50,000 UNIT Atorvastatin Calcium 40 mg HS PO 03/08/25 22:00 03/10/25 23:59 40 MG Haloperidol 5 mg [id number] PRN PO 03/08/25 17:00 03/09/25 16:47 5 MG Hydromorphone HCl 0.5 mg Q4HPRN PRN IV 03/08/25 18:45 03/09/25 21:36 0.5 MG Lactated Ringer's 1,000 ml @ 100 mls/hr Q10H IV 03/09/25 11:45 03/11/25 05:13 100 MLS/HR Sodium Chloride 10 ml Q8HR IV 03/09/25 14:00 03/11/25 14:15 10 ML Acetaminophen/ Hydrocodone Bitart 1 tab Q4HP PRN PO 03/09/25 11:45 03/10/25 13:22 1 TAB Polyethylene Glycol 17 gm DAILYPRN PRN PO 03/11/25 12:00 Examination Constitutional: Patient is alert and oriented x2, does not appear to be any acute distress and is following commands Gen - no pallor, no icterus, no cyanosis, no clubbing, no LAD, no edema . Skin - Patients skin is warm and dry. HEENT - normocephalic, atraumatic, dry mucous membranes. Neck - full ROM, no LAD, no JVD Pulmonary - B/L equal breath sounds, no crackles , no wheezing, no stridor. cardiovascular - regular S1,S2 heard, grade 2/6 systolic murmur heard at the LLSB, peripheral pulses normal radial 2+, pedal 2+. GI - soft, nontender abdomen. no hepatospleenomegaly. Bowel sounds normoactive Neurological - Bilateral upper extremity strength 4/5, left lower extremity strength 3/5, no facial droop, normal speech, no tremor, no sensory deficiets, right lower extremity patient is able to wiggle her toes and has strength 1/5 laboratory and microbiology Laboratory Tests 03/11/25 05:29 Test 03/11/25 05:29 Range/Units Serum Glucose 116 H 74-106 mg/dL Microbiology Date/Time Source Procedure Growth Status 03/09/25 06:10 Nose MRSA Screen - Final Complete 03/07/25 15:30 Blood Blood Culture - Preliminary NO GROWTH AFTER 72 HOURS OF INCUBATION. Resulted Problem List/Assessment/Plan Problem List/Assessment/Plan Acute metabolic encephalopathy History of dementia - alert and oriented x2 Heart failure with reduced ejection fraction, no exacerbation Status post biventricular AICD Dilated cardiomyopathy NSTEMI likely type 2 - ECG reviewed, sinus rhythm with a left bundle-branch block - last echo from June 2022 showed LVEF 45%, - left heart catheterization in January 2022 showed LVEF 20-25% - cardiology cleared patient for surgery Right femur intertrochanteric fracture status post fall S/P Right proximal femur intertrochanteric fracture closed reduction H/o left hip arthroplasty - hip x-ray shows right comminuted and displaced right intercondylar - pain management - head CT shows no acute intracranial abnormality - cervical CT shows no acute cervical spine fracture, disc disease with loss of disc height at C6-C7 - status post surgery, physical therapy evaluation and patient is pending discharge to half-way facility for rehab ?Acute rhabdomyolysis - elevated CK - IV fluids Hypernatremia likely due to dehydration, resolved PUD prophylaxis: Protonix DVT prophylaxis: Enoxaparin Goals of care discussed with the patient's daughter for over 25 minutes. Full code Plan discussed with Dr. Machado Plan discussed with: Patient, Daughter, Other (Grandson, RN Jacque) My Orders My Orders Orders - VERNON LOBO Procedure Category Date Status Time Polyethylene Glycol PHA 03/11/25 In Process 17g Powder (Miralax 12:00 Mechanical Soft Diet DIET 03/11/25 Transmitted Lunch Dietary Evaluation Review Comments: 1. PPN if continue NPO 2. Advance to regular diet as medically feasible 3. Continue current plan of care Expected Outcomes/Goals: Pt will meet 75% estimated needs Fu 2-3 days Date of Service: March 11, 2025 Billing Provider: ANNE MARIE MACHADO MD Common Visit Codes: [id number] INP/OBS CARE(HIGH) VERNON LOBO RESIDENT March 11, 2025 17:43 ANNE MARIE MACHADO MD March 12, 2025 14:19
[2025-03-12 05:00] VITALS: BP 118/67; PULSE 75; RESP 18; TEMP 98.2; O2SAT 94
[2025-03-12 08:00] VITALS: PULSE 78; RESP 18; O2SAT 99
[2025-03-12 09:00] VITALS: BP 131/62; PULSE 72; RESP 18; TEMP 97.4; O2SAT 95
[2025-03-12] MEDS: PANTOPRAZOLE 40 MG TAB PO ONE (10:00)
[2025-03-12 10:13] LABS: Basophils # (auto) 0 10 ^3/uL (0-0.2); Basophils % (auto) 0.5 % (0.0-2.0); Eosinophils # (auto) 0.2 10 ^3/uL (0-0.8); Eosinophils % (auto) 3.9 % (0.0-7.0); Hematocrit 24.9 % (36.0-46.0); Hemoglobin 8.6 g/dL (12.2-16.2); Lymphocytes # (auto) 1.2 10 ^3/uL (0.4-5.4); Lymphocytes % (auto) 20.1 % (10.0-50.0); Mean Corpuscular Hgb Conc. 34.5 g/dL (32.0-36.0); Mean Corpuscular Volume 89.9 fL (80.0-100.0); Monocytes # (auto) 0.8 10 ^3/uL (0-1.3); Monocytes % (auto) 12.4 % (0.0-12.0); Neutrophils # (auto) 3.8 10 ^3/uL (1.6-8.6); Neutrophils % (auto) 63.1 % (37.0-80.0); Nucleated Red Blood Cells % 0.1 %; Platelet Count (auto) 193 10^3/uL (140-450); Red Blood Cells 2.77 10^6/uL (4.0-5.20); White Blood Cell 6.1 10^3/uL (4.4-10.8)
[2025-03-12 10:18] LABS: Anion Gap 6 (5-15); Carbon Dioxide 30 mmol/L (20-31); Chloride 106 mmol/L (98-107); Potassium 3.8 mmol/L (3.5-5.1); Sodium 142 mmol/L (136-145)
[2025-03-12 10:24] LABS: BUN/Creatinine Ratio 20.3 (10.0-20.0); Blood Urea Nitrogen 12 mg/dL (9-23)
[2025-03-12 10:27] LABS: Calcium 8.6 mg/dL (8.7-10.4); Glucose 125 mg/dL (74-106)
[2025-03-12] MEDS: POTASSIUM EFFERVESENT TAB 25 MEQ PO ONE (11:08)
[2025-03-12] MEDS: MAGNESIUM OXIDE 400 MG TAB PO ONE (11:08)
--- NOTE | 2025-03-12 12:51 | DVHPN2 ---
Progress Note - Dictate Date Seen: March 11, 2025 Medical Necessity Reason Pt with a Central, PICC or Fol: Yes The following are medically ne: Hansen Catheter Subjective PT WITH FALL NOW WITH RIGHT HIP FRACTURE [facility] 02/20 PATENT CAD EF 40% S/P DUAL AICD DIABETES II VASCULOPATHY NEUROPATHY NEPHROPATHY HTN DYSLIPIDEMIA HRrEF CHRONIC ORGANIC BRAIN SYNDROME WAS FOUND DOWN BY DAUGHTER objective vital signs Vital Sign Date Time Temp Pulse Resp B/P (MAP) Pulse Ox O2 Delivery O2 Flow Rate FiO2 03/12/25 09:00 97.4 72 18 131/62 (85) 95 97.4 03/12/25 08:00 Room Air* 2 N/A Nasal Cannula* Total Intake and Output 03/11/25 03/11/25 03/12/25 15:00 23:00 07:00 Intake Total 340 ml 800 ml Balance 340 ml 800 ml medications Current Medications Medications Dose Ordered Sig/Gavin Route Start Time Stop Time Status Last Admin Dose Admin Acetaminophen 325 mg Q4HP PRN PO 03/07/25 20:15 03/08/25 16:56 325 MG Ondansetron HCl 4 mg Q4HP PRN IV 03/07/25 20:15 Enoxaparin Sodium 40 mg DAILY SC 03/09/25 10:00 03/12/25 08:54 40 MG Ergocalciferol 50,000 unit Q7D PO 03/08/25 09:45 03/08/25 10:25 50,000 UNIT Atorvastatin Calcium 40 mg HS PO 03/08/25 22:00 03/10/25 23:59 40 MG Haloperidol 5 mg [id number] PRN PO 03/08/25 17:00 03/09/25 16:47 5 MG Hydromorphone HCl 0.5 mg Q4HPRN PRN IV 03/08/25 18:45 03/09/25 21:36 0.5 MG Sodium Chloride 10 ml Q8HR IV 03/09/25 14:00 03/12/25 11:41 10 ML Acetaminophen/ Hydrocodone Bitart 1 tab Q4HP PRN PO 03/09/25 11:45 03/10/25 13:22 1 TAB Polyethylene Glycol 17 gm DAILYPRN PRN PO 03/11/25 12:00 Pantoprazole Sodium 40 mg DAILY@0600 PO 03/13/25 06:00 objective General Appearance: Moderate Distress HEENT: Normal ENT Inspection, Pharynx Normal, TMs Normal Neck: Full Range of Motion, Non-Tender, Normal, Normal Inspection Respiratory: Chest Non-Tender, Lungs Clear, No Accessory Muscle Use, No Respiratory Distress, Normal Breath Sounds Cardiovascular: No Edema, No JVD, No Murmur, No Gallop, Normal Peripheral Pulses, Regular Rate/Rhythm Breast Exam: Deferred Gastrointestinal: No Organomegaly, Non Tender, No Pulsatile Mass, Normal Bowel Sounds, Soft Genitalia: Deferred Pelvic: Deferred Rectal: Deferred Extremities: No calf tenderness, Normal capillary refill, No pedal edema RIGHT HIP TENDERNESS/ Musculoskeletal : Apperance: Normal Neurologic: Alert, [place] ma[place] II-XII nml as Tested, Motor Weakness, Normal Affect, Normal Mood, No Sensory Deficits Cerebellar Function: Normal Reflexes: Normal Skin: Dry, Normal Color, Warm Lymphatic: No Adenopathy laboratory and microbiology Laboratory Tests 03/12/25 09:25 Test 03/12/25 09:25 Range/Units Serum Glucose 125 H 74-106 mg/dL Problem List RIGHT HIP FRACTURE/ FEMORAL FRACTURE [facility] 02/20 PATENT CAD EF 40% S/P DUAL AICD DIABETES II VASCULOPATHY NEUROPATHY NEPHROPATHY HTN DYSLIPIDEMIA HRrEF CHRONIC DEMENTIA ETIOLOGY OF FALL UNCLEAR ANEMIA Assessment/Plan FROM CARDIAC [place] STABLE RO UNDERGO ARTHROPLASTY OR ORIF ASA III KEEP HCT >28 ECHO SHOWS EF OF 40-45% NORMAL CORONARIES S/P SURGERY Right proximal femur intertrochanteric fracture closed reduction cephalomedullary nail CARDIAC STATUS STABLE NEEDS TO START PT Dietary Evaluation Review Comments: 1. PPN if continue NPO 2. Advance to regular diet as medically feasible 3. Continue current plan of care Expected Outcomes/Goals: Pt will meet 75% estimated needs Fu 2-3 days Plan discussed with: Patient LIU BEAULIEU MD March 12, 2025 12:51
[2025-03-12 13:00] VITALS: BP 117/76; PULSE 71; RESP 18; TEMP 97.9; O2SAT 98
--- NOTE | 2025-03-12 18:52 | DVHDSRES ---
Discharge Summary Date of Admission Resident Creating Document: VERNON LOBO RESIDENT March 07, 2025 at 20:08 Date of Discharge: March 12, 2025 Admitting Diagnosis Status post right femur neck [id number] pelvis- Comminuted impacted right intertrochanteric fracture. X-ray right hip - There is a comminuted and displaced right intertrochanteric fracture. Fall, likely mechanical rule out right hip fracture/stroke/syncope/cardiac arrhythmia Metabolic encephalopathy likely due to ?UTI Suspected syncope Black eye on the left likely from fall Severe right hip pain, rule out acute fracture NSTEMI likely type 2 demand lead Acute rhabdomyolysis Hyponatremia likely from dehydration SIRS Leukocytosis, likely due to suspected UTI severe dementia, HFrEF, history of dilated cardiomyopathy on AICD biventricular, COPD, hypertension, diabetes mellitus type 2 Wounds: right hip surgery with sterile dressing Labs/Diagnostic Data: Laboratory Results Test 03/12/25 09:25 03/11/25 05:29 03/08/25 07:00 03/08/25 05:00 White Blood Count 6.1 10^3/uL (4.4-10.8) Red Blood Count 2.77 10^6/uL (4.0-5.20) Hemoglobin 8.6 g/dL (12.2-16.2) Hematocrit 24.9 % (36.0-46.0) Mean Corpuscular Volume 89.9 fL (80.0-100.0) Mean Corpuscular Hemoglobin 31.0 pg (28.0-32.0) Mean Corpuscular Hemoglobin Concent 34.5 g/dL (32.0-36.0) Red Cell Distribution Width 13.0 % (11.8-14.3) Platelet Count 193 10^3/uL (140-450) Mean Platelet Volume 8.0 fL (6.9-10.8) Neutrophils (%) (Auto) 63.1 % (37.0-80.0) Lymphocytes (%) (Auto) 20.1 % (10.0-50.0) Monocytes (%) (Auto) 12.4 % (0.0-12.0) Eosinophils (%) (Auto) 3.9 % (0.0-7.0) Basophils (%) (Auto) 0.5 % (0.0-2.0) Neutrophils # (Auto) 3.8 10 ^3/uL (1.6-8.6) Lymphocytes # (Auto) 1.2 10 ^3/uL (0.4-5.4) Monocytes # (Auto) 0.8 10 ^3/uL (0-1.3) Eosinophils # (Auto) 0.2 10 ^3/uL (0-0.8) Basophils # (Auto) 0 10 ^3/uL (0-0.2) Nucleated Red Blood Cells 0.1 % Sodium Level 142 mmol/L (136-145) Potassium Level 3.8 mmol/L (3.5-5.1) Chloride Level 106 mmol/L (98-107) Carbon Dioxide Level 30 mmol/L (20-31) Anion Gap 6 (5-15) Blood Urea Nitrogen 12 mg/dL (9-23) Creatinine 0.59 mg/dL (0.550-1.02) Glomerular Filtration Rate Calc 92 mL/min (>90) BUN/Creatinine Ratio 20.3 (10.0-20.0) Serum Glucose 125 mg/dL (74-106) Calcium Level 8.6 mg/dL (8.7-10.4) Magnesium Level 1.8 mg/dL (1.6-2.6) Prothrombin Time 11.0 sec (9.3-11.8) Prothrombin Time INR 1.04 (0.9-1.15) Activated Partial Thromboplast Time 24.5 SEC (24.5-34.5) Total Bilirubin 0.9 mg/dL (0.2-1.0) Aspartate Amino Transferase (AST) 30 U/L (13-40) Alanine Aminotransferase (ALT) 18 U/L (7-40) Alkaline Phosphatase 57 U/L (46-116) Creatine Kinase 449 U/L (34-145) Total Protein 5.8 g/dL (5.7-8.2) Albumin 3.7 g/dL (3.2-4.8) Triglycerides Level 103 mg/dL (< 150) Cholesterol Level 131 mg/dL (< 200) LDL Cholesterol 75 mg/dL (< 100) HDL Cholesterol 39 mg/dL (40-59) Test 03/07/25 22:14 03/07/25 18:30 03/07/25 15:30 03/07/25 15:07 Influenza Type A Antigen Negative (Negative) Influenza Type B Antigen Negative (Negative) SARS-CoV-2 Antigen (Rapid) Negative (NEGATIVE) Troponin I High Sensitivity 145 ng/L (</=34) Thyroid Stimulating Hormone (TSH) 0.71 uIU/mL (0.55-4.78) Hemoglobin A1c 5.4 % A1C (<5.7) Lactic Acid Level 1.9 mmol/L (0.4-2.0) B-Type Natriuretic Peptide 26.08 pg/mL (0-100) Vitamin B12 Level 1032 pg/mL (211-911) Vitamin D 25-Hydroxy 13.2 ng/mL (30.0-100) Folic Acid 22.07 ng/mL (>5.38) Urine Color Yellow (Yellow) Urine Clarity Turbid (Clear) Urine pH 5.5 (5.0-9.0) Urine Specific [place] 1.026 (1.001-1.035) Urine Protein Trace (Negative) Urine Ketones 1+ (Negative) Urine Blood Negative /uL (Negative) Urine Nitrite Negative (Negative) Urine Bilirubin Negative (Negative) Urine Urobilinogen Normal mg/dL (Negative) Urine Leukocyte Esterase Negative /uL (Negative) Urine RBC 1 /hpf (0 - 4) Urine Microscopic WBC 2 /HPF (0-5) Urine Squamous Epithelial Cells Few /hpf (<5) Urine Bacteria Few /hpf (None Seen) Urine Mucus Few (None Seen) Urine Glucose Normal mg/dL (Normal) Other Laboratory Tests 03/12/25 09:25 Brief Hx & Hospital Course: HPI Patient is 80 years old female with a past medical history of dementia, HFrEF, history of dilated cardiomyopathy on AICD biventricular, COPD, hypertension, diabetes mellitus type 2 was brought in by EMS as patient was found on the floor with feces and urine likely after fall. Information was gathered mainly from patient's daughter Ms. Felix [phone] and reviewing chart from EMS. As per daughter family friend came to check on her this morning and found her on the floor lying with feces and urine. Patient reported she fell last night but can not recall detailed. As per family patient also had a fall 1 month back. Daughter reported that she talked to her last night and denied any complaint of chest pain no shortness a breath or fever or dysuria. Past medical history as per HPI Past surgical history: Status post AICD, left hip arthroplasty, left heart catheterization History: Patient lives alone and currently does not smoke, drink or any other drug use Home Medications: Aspirin, donepezil, carvedilol, metformin, simvastatin Hospital course Patient reportedly had a fall unwitnessed and was brought to the hospital the next day after she was noticed lying down on the floor at her home. CT head was done which did not show any acute intracranial abnormality, CT cervical spine was done which also did not show any acute fracture or dislocation, right hip x- ray and the pelvic x-ray showed comminuted impacted right intertrochanteric fracture following which orthopedics were consulted. After clearance from Cardiology patient underwent right proximal femur intertrochanteric fracture closed reduction which was done successfully. Patient needed physical therapy rehabilitation and was discharged to long term facility. Patient discharged in stable condition Consults/Reason for consult Cardiology consultation for clearance for surgery Orthopedic consultation for right intertrochanteric fracture Operations or Procedures Operative Report - 2 Report Details Date: 03/09/25 Preop Diagnosis: Right hip displaced intertrochanteric fracture Postop Diagnosis: Right hip displaced intertrochanteric fracture Surgeon: Jocelynn Lees MD Anesthesiologist: Tony Anesthesia: Regional Implant: Orthofix short nail, 130, 10 mm diameter, 95 mm hip screw, 30 mm distal locking screw Consent: The patient was informed of the risks and benefits of the procedure. These include but are not limited to complications of anesthesia, postoperative infection, incomplete relief of symptoms, recurrence of symptoms, damage to blood vessels, nerves and tendons, deep venous thrombosis, pulmonary embolism and possible need for repeat surgery in the future. Complications: None Estimated Blood Loss: 75 cc Fluids: See anesthesia record Findings: Right proximal humerus comminuted displaced intertrochanteric fracture with significant osteopenia Indications for Surgery: Unstable hip fracture Name of Procedure Performed Right proximal femur intertrochanteric fracture closed reduction cephalomedullary nail C-arm fluoroscopy Procedure Details Procedure Details: The patient was brought to the operating room and placed on the [place] table in the supine position. The patient was given spinal anesthetic. Preop patient received IV Ancef. Nonoperative extremity was placed in the well-leg miller. Operative extremity placed in boot traction. Closed reduction maneuver performed and verified with C-arm fluoroscopy in AP and lateral views. Surgical timeout performed verifying patient, laterality and procedure. Operative extremity was prepped and draped in sterile fashion. Incision was made proximal to the greater trochanter then I incised the fascia. I passed a guidewire into the proximal femur and adjusted the position based on AP and lateral views with C arm. I used the soft tissue protector and reamed over the guidewire then guidewire was removed. I then inserted the previously templated nail until appropriate depth was reached based on C-arm fluoroscopy. I then passed the hip screw cannula to skin then made skin and fascial incision and passed it to bone. I inserted a guidewire into the proximal femoral neck and head and again adjusted position based on C arm. I measured for length. I then reamed and inserted the hip screw. Guidewire and cannula were removed. I then used the distal locking cannula through the static hole passing it to skin and making skin and fascial incision then passing it to bone. I drilled and measured length off the drill bit and inserted distal locking screw. I obtain C arm views AP and lateral throughout the length of the construct to verify fracture reduction and hardware placement. Wounds were irrigated with normal saline. Fascial tissue closed with 0 Vicryl. Subcu closed with 2-0 Vicryl. Skin closed with constantin. Wounds dressed sterilely. Patient tolerated procedure well was brought to recovery in stable condition. Condition Stable Disposition 2 Still a Patient JOCELYNN LEES MD March 09, 2025 11:49 Condition at Discharge: Fair Final Diagnosis/Problems List Acute metabolic encephalopathy History of dementia Heart failure with reduced ejection fraction, no exacerbation Status post biventricular AICD Dilated cardiomyopathy NSTEMI likely type 2 Right femur intertrochanteric fracture status post fall S/P Right proximal femur intertrochanteric fracture closed reduction H/o left hip arthroplasty ?Acute rhabdomyolysis Hypernatremia likely due to dehydration, resolved Discharge Disposition: [facility] Facility Discharge Instruct/Medications Diet: Cardiac 2g Na,low cholest Diet comment: mechanical soft diet Activity: Light activity Activity comment: physical therapy rehab s/p right hip surgery Follow Up/Referral: Follow up with the PCP in 1 week Medications: as per EMR Discharge Statement: "Patient was advised to return to the ER or call 911 if any headaches, dizziness, shortness of breath, chest pain, abdominal pain, bleeding, fevers, or worsening of medical condition. Patient was counseled about treatment plan, medications, possible side effects, patientverbalized understanding. All questions were answered to the best of my ability. This discharge took greater then 30 minutes in planning, reviewing documentation, counseling the patient, and discussing with other team members." ASSESSMENT ASSESSMENT Assessment Acute metabolic encephalopathy History of dementia Heart failure with reduced ejection fraction, no exacerbation Status post biventricular AICD Dilated cardiomyopathy NSTEMI likely type 2 Right femur intertrochanteric fracture status post fall S/P Right proximal femur intertrochanteric fracture closed reduction H/o left hip arthroplasty ?Acute rhabdomyolysis Hypernatremia likely due to dehydration, resolved Date of Service: March 12, 2025 Billing Provider: ANNE MARIE MACHADO MD Common Visit Codes: 02573-VFY/OBS DISCH DAY >30min VERNON LOBO RESIDENT March 12, 2025 18:52 ANNE MARIE MACHADO MD March 19, 2025 22:43
[2025-03-13] MEDS ORDERED: PANTOPRAZOLE 40 MG TAB PO SCH (06:00)
--- NOTE | 2025-03-13 13:52 | DVHPN2 ---
Progress Note - Dictate Date Seen: March 10, 2025 Medical Necessity Reason Pt with a Central, PICC or Fol: Yes The following are medically ne: Hansen Catheter Subjective PT WITH FALL NOW WITH RIGHT HIP FRACTURE PM[facility] 02/20 PATENT CAD EF 40% S/P DUAL AICD DIABETES II VASCULOPATHY NEUROPATHY NEPHROPATHY HTN DYSLIPIDEMIA HRrEF CHRONIC ORGANIC BRAIN SYNDROME WAS FOUND DOWN BY DAUGHTER objective vital signs Vital Sign Date Time Temp Pulse Resp B/P (MAP) Pulse Ox O2 Delivery O2 Flow Rate FiO2 03/12/25 13:00 97.9 71 18 117/76 (90) 98 97.9 03/12/25 08:00 Room Air* 2 N/A Nasal Cannula* Total Intake and Output 03/12/25 03/12/25 03/13/25 15:00 23:00 07:00 Intake Total 700 ml Balance 700 ml objective General Appearance: Moderate Distress HEENT: Normal ENT Inspection, Pharynx Normal, TMs Normal Neck: Full Range of Motion, Non-Tender, Normal, Normal Inspection Respiratory: Chest Non-Tender, Lungs Clear, No Accessory Muscle Use, No Respiratory Distress, Normal Breath Sounds Cardiovascular: No Edema, No JVD, No Murmur, No Gallop, Normal Peripheral Pulses, Regular Rate/Rhythm Breast Exam: Deferred Gastrointestinal: No Organomegaly, Non Tender, No Pulsatile Mass, Normal Bowel Sounds, Soft Genitalia: Deferred Pelvic: Deferred Rectal: Deferred Extremities: No calf tenderness, Normal capillary refill, No pedal edema RIGHT HIP TENDERNESS/ Musculoskeletal : Apperance: Normal Neurologic: Alert, fiberglass roller II-XII nml as Tested, Motor Weakness, Normal Affect, Normal Mood, No Sensory Deficits Cerebellar Function: Normal Reflexes: Normal Skin: Dry, Normal Color, Warm Lymphatic: No Adenopathy laboratory and microbiology Laboratory Tests 03/12/25 09:25 Test 03/12/25 09:25 Range/Units Serum Glucose 125 H 74-106 mg/dL Problem List RIGHT HIP FRACTURE/ FEMORAL FRACTURE [facility] 02/20 PATENT CAD EF 40% S/P DUAL AICD DIABETES II VASCULOPATHY NEUROPATHY NEPHROPATHY HTN DYSLIPIDEMIA HRrEF CHRONIC DEMENTIA ETIOLOGY OF FALL UNCLEAR ANEMIA Assessment/Plan FROM CARDIAC [place]AND [place] STABLE RO UNDERGO ARTHROPLASTY OR ORIF ASA III KEEP HCT >28 ECHO SHOWS EF OF 40-45% NORMAL CORONARIES S/P SURGERY Right proximal femur intertrochanteric fracture closed reduction cephalomedullary nail CARDIAC STATUS STABLE NEEDS TO START PT Dietary Evaluation Review Comments: 1. PPN if continue NPO 2. Advance to regular diet as medically feasible 3. Continue current plan of care Expected Outcomes/Goals: Pt will meet 75% estimated needs Fu 2-3 days Plan discussed with: Patient LIU BEAULIEU MD March 13, 2025 13:52
--- NOTE | 2025-03-13 13:52 | DVHPN2 ---
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 BY DAUGHTER objective vital signs Vital Sign Date Time Temp Pulse Resp B/P (MAP) Pulse Ox O2 Delivery O2 Flow Rate FiO2 03/12/25 13:00 97.9 71 18 117/76 (90) 98 97.9 03/12/25 08:00 Room Air* 2 N/A Nasal Cannula* Total Intake and Output 03/12/25 03/12/25 03/13/25 15:00 23:00 07:00 Intake Total 700 ml Balance 700 ml objective General Appearance: Moderate Distress HEENT: Normal ENT Inspection, Pharynx Normal, TMs Normal Neck: Full Range of Motion, Non-Tender, Normal, Normal Inspection Respiratory: Chest Non-Tender, Lungs Clear, No Accessory Muscle Use, No Respiratory Distress, Normal Breath Sounds Cardiovascular: No Edema, No JVD, No Murmur, No Gallop, Normal Peripheral Pulses, Regular Rate/Rhythm Breast Exam: Deferred Gastrointestinal: No Organomegaly, Non Tender, No Pulsatile Mass, Normal Bowel Sounds, Soft Genitalia: Deferred Pelvic: Deferred Rectal: Deferred Extremities: No calf tenderness, Normal capillary refill, No pedal edema RIGHT HIP TENDERNESS/ Musculoskeletal : Apperance: Normal Neurologic: Alert, spanish speaking babysitter II-XII nml as Tested, Motor Weakness, Normal Affect, Normal Mood, No Sensory Deficits Cerebellar Function: Normal Reflexes: Normal Skin: Dry, Normal Color, Warm Lymphatic: No Adenopathy laboratory and microbiology Laboratory Tests 03/12/25 09:25 Test 03/12/25 09:25 Range/Units Serum Glucose 125 H 74-106 mg/dL Problem List RIGHT HIP FRACTURE/ FEMORAL FRACTURE [facility] 02/20 PATENT CAD EF 40% S/P DUAL AICD DIABETES II VASCULOPATHY NEUROPATHY NEPHROPATHY HTN DYSLIPIDEMIA HRrEF CHRONIC DEMENTIA ETIOLOGY OF FALL UNCLEAR ANEMIA Assessment/Plan FROM CARDIAC STAND PO[place] STABLE RO UNDERGO ARTHROPLASTY OR ORIF ASA III KEEP HCT >28 ECHO SHOWS EF OF 40-45% NORMAL CORONARIES S/P SURGERY Right proximal femur intertrochanteric fracture closed reduction cephalomedullary nail CARDIAC STATUS STABLE NEEDS TO START PT Dietary Evaluation Review Comments: 1. PPN if continue NPO 2. Advance to regular diet as medically feasible 3. Continue current plan of care Expected Outcomes/Goals: Pt will meet 75% estimated needs Fu 2-3 days Plan discussed with: Patient LIU BEAULIEU MD March 13, 2025 13:52
== END 2025-03-12 18:35 | DRG 480 ==
LOC: EDUNIT# 14:47 → EDBD 14:47 → ER 14:47 → OVERFLOW 20:08 → TELE-CENTR 03-08 22:38
PROVIDERS: ADMIT Student in an Organized Health Care Education/Training Program; ATTEND Emergency Medicine
PROC: 0QS636Z Reposition Right Upper Femur with Intramedullary Internal Fixation Device, Percutaneous Approach (ICD-10-PCS; principal; 2025-03-09 10:34)
DX: S72.141A Displaced intertrochanteric fracture of right femur, initial encounter for closed fracture (principal); G93.41 Metabolic encephalopathy; I21.A1 Myocardial infarction type 2; M62.82 Rhabdomyolysis; N39.0 Urinary tract infection, site not specified; E87.0 Hyperosmolality and hypernatremia; I42.0 Dilated cardiomyopathy; I50.22 Chronic systolic (congestive) heart failure; R65.10 Systemic inflammatory response syndrome (SIRS) of non-infectious origin without acute organ dysfunction; Z20.822 Contact with and (suspected) exposure to COVID-19; S00.12XA Contusion of left eyelid and periocular area, initial encounter; E86.0 Dehydration; F03.C0 Unspecified dementia, severe, without behavioral disturbance, psychotic disturbance, mood disturbance, and anxiety; J44.9 Chronic obstructive pulmonary disease, unspecified; E11.40 Type 2 diabetes mellitus with diabetic neuropathy, unspecified; E78.5 Hyperlipidemia, unspecified; I25.10 Atherosclerotic heart disease of native coronary artery without angina pectoris; I11.0 Hypertensive heart disease with heart failure; M85.80 Other specified disorders of bone density and structure, unspecified site; S09.90XA Unspecified injury of head, initial encounter; K80.20 Calculus of gallbladder without cholecystitis without obstruction; Z96.642 Presence of left artificial hip joint; W18.39XA Other fall on same level, initial encounter; E11.21 Type 2 diabetes mellitus with diabetic nephropathy; K57.30 Diverticulosis of large intestine without perforation or abscess without bleeding; Z90.710 Acquired absence of both cervix and uterus; Z88.0 Allergy status to penicillin; Y93.89 Activity, other specified; Z88.8 Allergy status to other drugs, medicaments and biological substances; Z79.899 Other long term (current) drug therapy; Z79.82 Long term (current) use of aspirin; Z79.891 Long term (current) use of opiate analgesic; Z79.1 Long term (current) use of non-steroidal anti-inflammatories (NSAID); Z79.84 Long term (current) use of oral hypoglycemic drugs; Z80.49 Family history of malignant neoplasm of other genital organs; Z82.49 Family history of ischemic heart disease and other diseases of the circulatory system; Z80.1 Family history of malignant neoplasm of trachea, bronchus and lung; Z82.62 Family history of osteoporosis; Y92.89 Other specified places as the place of occurrence of the external cause; Y99.8 Other external cause status; Z95.0 Presence of cardiac pacemaker; Z88.5 Allergy status to narcotic agent
CPT/HCPCS: 36415; 70450; 71045; 71250; 72125; 72170; 73501; 73502; 74176; 76000; 80048; 80053; 80061; 81001; 82306; 82550; 82607; 82746; 83036; 83605; 83735; 83880; 84443; 84484; 85025; 85610; 85730; 86850; 86900; 86901; 87040; 87081; 87426; 87804; 93005; 93306; 96365; 96372; 96375; 97110; 97116; 97163; 97530; 99291; G0378; J2250; J2405; J2470; J2704; J3490